=== PATIENT | male | born 1980 | race Caucasian/White ===

== ENCOUNTER → 2023-12-30 09:50 | Outpatient (BNVA) | payer OTHER, SELFPAY | PROVIDERS: Visit Provider Podiatrist Foot & Ankle Surgery | DX: I73.9 Peripheral vascular disease, unspecified; L97.512 Non-pressure chronic ulcer of other part of right foot with fat layer exposed | CPT/HCPCS: 73630 ==

== ENCOUNTER 2024-01-04 11:41 | Outpatient (CLI) | payer OTHER, SELFPAY ==
--- NOTE | 2024-01-04 12:30 | USCV_ITS ---
Eduardo Barlow Age: 43 Gender: M : 1980 Exam Date: 01/04/2024 11:55 Ordering Phys: Emanuel Pérez DPM Technologist: Exam Location: [facility] [place]_ Indication: pvd RIGHT LEFT Brachial 157.00 mmHg Brachial mmHg Pressure (mmHg) Waveform Pressure (mmHg) Waveform 93.00 SIGN HANGER 80.00 DPA 0.59 Ankle/Brachial Index 70.00 Post-Exercise Toe Pressure 0.45 Pre-Exercise Toe/Brachial Index FINDINGS Resting MARCO of 0.59 on the right side Resting TBI of 0.45 on the right CONCLUSIONS Abnormal resting MARCO, consistent with the moderate peripheral arterial disease Dr Marsha Ingram MD [facility] (Electronically Signed) Final Date: 05 January 2024 21:31 S
== END 2024-01-04 11:42 | disposition home or self-care (01) ==
LOC: RAD 11:42
PROVIDERS: Visit Provider Podiatrist Foot & Ankle Surgery
DX: I73.9 Peripheral vascular disease, unspecified (principal)
CPT/HCPCS: 93922

== ENCOUNTER 2024-01-11 09:45 | Outpatient (CLI) | payer OTHER, SELFPAY ==
--- NOTE | 2024-01-11 10:00 | CTR_ITS ---
PROCEDURE INFORMATION: Exam: CTA Abdominal Aorta and Bilateral Lower Extremities (Run-off) With Contrast Exam date and time: 01/11/2024 10:06 AM Age: 43 years old Clinical indication: Condition or disease; Peripheral vascular disease; Additional info: Pad, evaluate extent of pad TECHNIQUE: Imaging protocol: Computed tomographic angiography of the of the abdominal aorta, pelvis and bilateral lower extremities with contrast. 3D rendering (Not supervised by radiologist): MIP and/or 3D reconstructed images were created by the technologist. Radiation optimization: All CT scans at this facility use at least one of these dose optimization techniques: automated exposure control; mA and/or kV adjustment per patient size (includes targeted exams where dose is matched to clinical indication); or iterative reconstruction. Contrast material: OMNI 350; Contrast volume: 120 ml; Contrast route: INTRAVENOUS (IV); COMPARISON: CR XR foot RT min 3V* [id number] 12/30/2023 9:56 AM RADIATION DOSE METRICS: Total DLP (mGy-cm): 2004.43 FINDINGS: Aorta: There is mild aortic atherosclerotic disease. Celiac trunk and mesenteric arteries: There is 50-60% stenosis at the origin of the common hepatic artery. There is less than 50% stenosis at the origin of the splenic artery. There is less than 50% stenosis at the origin of the celiac artery. There is multifocal less than 50% stenosis in the distal superior mesenteric artery. There is no significant stenosis at the superior mesenteric artery origin or in the proximal portion. Renal arteries: Renal arteries are normal. Right iliac arteries: There is mild noncalcific plaque with less than 50% stenosis of the origin of the right common iliac artery. No plaque or stenosis in the right external iliac artery. Less than 50% stenosis in the right internal iliac artery. Right femoral/popliteal arteries: Minimal plaque and no stenosis in the right common femoral artery. Mild noncalcific plaque with less than 50% stenosis at the origin of right superficial femoral artery. The right profundus femoris artery is widely patent. There is mild noncalcific plaque with less than 50% stenosis in the right superficial femoral artery above Paulo's canal. The right superficial femoral artery is occluded through Paulo's canal over a 5.6 cm segment and is reconstituted distally by collaterals. There is mild calcific and noncalcific plaque in the reconstituted distal right superficial femoral artery with less than 50% stenosis. There is mild calcific and noncalcific plaque in the right popliteal artery with less than 50% stenosis. There is moderate calcific plaque with 50-60% stenosis of the distal right popliteal artery just above the takeoff of the anterior tibial artery. Right infrapopliteal arteries: The right anterior tibial artery demonstrates moderate multifocal calcific plaque and multifocal high-grade stenosis but is patent to the foot. The right posterior tibial artery demonstrates moderate multifocal calcific plaque and multifocal high-grade stenosis but is patent to the foot. The right peroneal artery demonstrates multifocal moderate calcific plaque and multifocal high-grade stenosis but is patent to the foot. The right dorsalis pedis artery is patent. Left iliac arteries: There is mild calcific and noncalcific plaque at the origin of the left common iliac artery with less than 50% stenosis. There is no plaque or stenosis in the left external iliac artery. Less than 50% stenosis in the left internal iliac artery. Left femoral/popliteal arteries: The left common femoral artery is normal. The left profundus femoris artery is widely patent. The left superficial femoral artery is normal proximally and demonstrates mild calcific and noncalcific plaque at Paulo's canal where there is a short segment of 50-60% stenosis at the distal aspect of Paulo's canal. Left popliteal artery demonstrates moderate calcific and noncalcific plaque with widely patent lumen proximally. The left distal popliteal artery is occluded over a 5 cm segment to the level of the takeoff of the anterior tibial artery. Left infrapopliteal arteries: There is reconstitution of the left anterior tibial artery near its origin. There is moderate multifocal calcific plaque and multifocal high-grade stenosis of the left anterior tibial artery which is patent to the foot. The left dorsalis pedis artery is faintly contrast opacified. There is reconstitution with faint contrast opacification of the proximal left peroneal artery. No contrast is seen in the left peroneal artery distally. There is reconstitution of the left mid posterior tibial artery which demonstrates moderate multifocal calcific plaque and multifocal high-grade stenosis but is patent to the foot. Lungs: Lung bases are clear. Liver: The liver is mildly enlarged. There is no focal liver abnormality. Gallbladder and bile ducts: The gallbladder is normal. There is no biliary dilation. Pancreas: The pancreas is unremarkable. Spleen: The spleen is mildly enlarged. Adrenal glands: The adrenal glands are unremarkable. Kidneys and ureters: The kidneys are unremarkable. No hydronephrosis or stones. No ureteral dilation. Stomach and bowel: The stomach is nondistended, limiting assessment of wall thickness. The small bowel is nondilated. The colon is unremarkable. Appendix: The appendix is not visible. Urinary bladder: There is mild diffuse bladder wall thickening suggesting muscular hypertrophy. Reproductive: There is nonspecific mild enlargement of the prostate gland. Intraperitoneal space: There is no free air or significant intraperitoneal free fluid. Lymph nodes: There is no lymphadenopathy in the retroperitoneum, mesentery, pelvis or inguinal regions. Bones/joints: There is cortical destruction of the right distal 1st phalangeal tuft with associated soft tissue edema and ulceration at the tip of the great toe. Bones in the lower extremities are otherwise unremarkable. There is moderate degenerative disease in the lumbar spine. The pelvis and hips are unremarkable. Soft tissues: The abdominal wall is intact. CT/CT angio abd aorta runof [id number] IMPRESSION: 1. 5.6 cm segment of probably chronic occlusion in the right distal superficial femoral artery at Paulo's canal with reconstitution above the popliteal artery via a well-developed collateral network. 2. 50-60% focal stenosis of the right distal popliteal artery. 3. Moderate right infrapopliteal arterial disease with patent 3 vessel runoff to the foot. 4. 5 cm segment of probably chronic occlusion in the left distal popliteal artery with incomplete reconstitution of the infrapopliteal vessels. 5. Severe left infrapopliteal artery disease with patent 2 vessel runoff to the foot via reconstitution by collaterals. 6. Osteomyelitis involving the distal 1st phalangeal tuft. 7. Incidental findings above.
[2024-01-11] MEDS: iohexol 350 mg/mL 500 mL Btl (per mL) IV (10:18)
== END 2024-01-11 09:46 | disposition home or self-care (01) ==
LOC: RAD 09:46
PROVIDERS: Visit Provider Podiatrist Foot & Ankle Surgery
DX: I70.203 Unspecified atherosclerosis of native arteries of extremities, bilateral legs (principal); M86.9 Osteomyelitis, unspecified
CPT/HCPCS: 75635; Q9967

== ENCOUNTER → 2024-03-12 10:19 | Outpatient (BNVA) | payer OTHER, SELFPAY | PROVIDERS: Visit Provider Podiatrist Foot & Ankle Surgery | DX: I73.9 Peripheral vascular disease, unspecified; L97.514 Non-pressure chronic ulcer of other part of right foot with necrosis of bone | CPT/HCPCS: 73630 ==

== ENCOUNTER 2024-03-21 09:35 | Day surgery (SDC) | payer OTHER, SELFPAY ==
[2024-03-21] VITALS (7 sets, daily range): BP systolic 108–147; BP diastolic 63–87; PULSE 64–78; RESP 13–18; TEMP 36.3–36.4; O2SAT 96–98; BMI 31.5
[2024-03-21 10:20] LABS: Glucose Point of Care 87 mg/dL (70-110)
--- NOTE | 2024-03-21 10:31 | W.PM.OPSUD ---
Surgery/Procedure H&P Update DATE OF PROCEDURE: March 21, 2024 DATE H&P PERFORMED: 03/12/24 H&P UPDATE INFORMATION: I have reviewed H&P completed within last 30 days, I have examined patient prior to procedure, No changes to prior documentation and H&[place] is in [facility] [place] indicated PREOP DIAGNOSIS: Osteomyelitis PLANNED PROCEDURE: Operation Date: 03/21/24 10:40 Proposed Procedures p Amputation Toe/s Hallux Amputation/Partial right hallux amputation(Right) - Emanuel Pérez DPM
--- NOTE | 2024-03-21 10:33 | ANES.PREANE2 ---
Pre-Anesthetic Assessment Height/Weight: Height 2.01 m Weight 127.006 kg Temp Pulse Resp BP Pulse Ox O2 Del Method 97.5 F L 78 18 147/87 98 Room Air 03/21/24 09:51 03/21/24 09:51 03/21/24 09:51 03/21/24 09:51 03/21/24 09:51 03/21/24 10:02 Preop Diagnosis: Osteomyelitis Operation Date: 03/21/24 10:40 Proposed Procedures p Amputation Toe/s Hallux Amputation/Partial right hallux amputation(Right) - Emanuel Pérez DPM Familial anesthetic complications: pulls at lines and tubes upon awakening during one surgery several years ago Was Beta Allegra taken within 24 hours: N/A Was Clonidine taken within 24 hours: N/A Last intake: Intake Last Liquid Date 03/20/24 Last Liquid Time 22:00 Last Solid Date 03/20/24 Last Solid Time 22:00 Social Tobacco and No alcohol Exam alert, oriented x 3, clear to auscultation bilaterally and regular rate & rhythm Airway Dentition: full CV/HEM Peripheral Vascular Disease Metabolic Diabetes Mellitus and Hyperlipidemia Anesthetic Plan ASA status: 3 Anesthesia: MAC Risk of > 500 ml blood loss (7ml/kg in children): No Medications/Allergies Home Medications Medication Instructions Recorded Confirmed Last Taken Type aspirin 81 mg tablet,delayed 324 mg PO DAILY 02/13/24 03/20/24 03/20/24 History release (Adult Aspirin Regimen) doxycycline hyclate 100 mg capsule 100 mg PO BID #20 caps 03/12/24 03/20/24 03/20/24 Rx atorvastatin 80 mg tablet 80 mg PO DAILY 03/20/24 03/20/24 03/20/24 History clopidogrel 75 mg tablet 75 mg PO DAILY 03/20/24 03/20/24 03/20/24 History insulin glargine-yfgn 100 unit/mL 47 unit SUBCUT DAILY 03/20/24 03/20/24 03/20/24 History (3 mL) subcutaneous pen insulin lispro 100 unit/mL 0 sliding scale dose SUBCUT BIDPC 03/20/24 03/20/24 03/20/24 History subcutaneous pen hydrocodone 5 mg-acetaminophen 325 1 tab PO Q6H PRN pain #12 tabs 03/21/24 Unknown Rx mg tablet Allergies Allergy/AdvReac Type Severity Reaction Status Date / Time No Known Allergies Allergy Verified 03/12/24 10:08 [facility] Anesthesia Medical History Smoking Family History Mother CAD (coronary artery disease) Father CAD (coronary artery disease) Stroke Social History Smoking and tobacco/nicotine status: current every day tobacco/nicotine user cigarettes Packs smoked per day: 2 Years cigarettes smoked: 25 Alcohol intake: former Year of sobriety/quit date alcohol: 2013 Substance/Drug Use: never Marital status: Single Data Anesthesia Cardiac Studies: No Data to Display
[2024-03-21] MEDS: sodium chloride 0.9% 1,000 ML 30 ML IV (10:34)
[2024-03-21] MEDS: acetaminophen 1,000 MG/100 ML PIGGYBACK 400 MG IV (10:35)
[2024-03-21] MEDS: gabapentin 300 mg Capsule PO (10:35)
[2024-03-21] MEDS: ceFAZolin 3,000 MG in sodium chloride 0.9% (plus) 100 ML 200 MG IV (11:01)
[2024-03-21] MEDS: BUPivacaine 0.5% INJ 30 mL INJECTION (11:24)
--- NOTE | 2024-03-21 11:40 | W.PM.BPON ---
Date of procedure: 03/21/2024 Surgeon name: Dr. Emanuel Pérez D.P.M. Construction Technician(s) name(s): Reyes Procedure(s) performed: Partial hallux amputation right foot Description of findings: Osteomyelitis distal phalanx right hallux Estimated blood loss: 1 cc Tourniquet time: No tourniquet used Specimen(s) removed: Distal phalanx right hallux send in formalin, cultures aerobic and anaerobic Post-operative diagnosis: Osteomyelitis right distal phalanx of hallux
[2024-03-21] MEDS: HYDROcodone-acetaminophen 5-325 mg Tablet 1 TAB PO (12:27)
--- NOTE | 2024-03-21 12:35 | ANE.PACU2 ---
Inpatient post-anesthesia follow up: Airway intact: Yes Vital signs: Temperature 97.4 F Pulse Rate 64 Respiratory Rate 16 Blood Pressure 114/72 Pulse Oximetry 97 Oxygen Delivery Me thod Room Air Oxygen Flow Rate Fraction of Inspir ed Oxygen Hydration adequate: Yes Nausea and vomiting: No Pain level: 1 Mental status: Baseline
--- NOTE | 2024-03-21 21:41 | P.OP_ITS ---
Operative Report Date of procedure: March 21, 2024 Pre-op diagnosis: Osteomyelitis right hallux Post-op diagnosis: Same Post-op findings: Osteomyelitis distal phalanx right hallux Procedure done: Partial hallux amputation right foot CPT 50043 Implants: None Specimens removed/disposition: Cultures aerobic and anaerobic Pathology: Distal phalanx right hallux sent to pathology as surgical specimen Surgeon: Emanuel Pérez DPM [employer]: Reyes Estimated blood loss: 1 cc No tourniquet used Complications: None Findings: See above Procedure: Patient is a 44-year-old male that has a history of chronic ulceration right distal hallux with underlying osteomyelitis. The patient has had the aforementioned chief complaint for some time. Conservative treatment measures have been attempted and the patient has opted for surgical intervention at this time. A lengthy discussion regarding the procedure, including risks and complications has been had with the patient and is noted in the recent clinic note. Written and verbal consent have been obtained. All patient questions have been answered to the patient?s satisfaction. No written or verbal guarantees have been given or implied. The patient has been NPO since midnight. The history has been reviewed and the history and physical is current. The signed consent was confirmed and placed in the patient chart. Patient imaging has been reviewed and is consistent with the diagnosis. Under mild sedation, the patient was brought into the operating room and placed on the table in the supine position. IV antibiotics were given by the anesthesia team as preoperative surgical prophylaxis. IV sedation was then performed by the anesthesiateam. A local field block was performed using 0.5% Marcaine plain. No tourniquet was used for the procedure due to recent revascularization. Betadine prep was performed. Foot was then draped in the usual fashion and the following procedure was then performed. Attention was directed to the distal right hallux where a full-thickness ulceration with positive probe to bone was visualized. A fishmouth incision was made circumferentially around the distal aspect of the hallux using a #15 blade. Dissection was carried out to the level of the hallux interphalangeal joint. This was resected and passed from the operative field be sent to pathology as surgical specimen. The remaining tissue appeared healthy and viable in nature. The head of the proximal phalanx was freed from erosive or degenerative changes. No abscess formation was visualized. Blood flow was stable to the area. Site was irrigated with copious amounts of sterile saline before attention was directed to closure. 3-0 nylon was used to close the incision in simple erupted fashion. The site was then dressed with Xeroform, 4 x 4 gauze, Kerlix and Coban. The patient tolerated the procedure and anesthesia well and without complication. The patient was transported from the operating room to the recovery room with vital signs stable and vascular status intact to all digits of the right foot. The patient was given both written and verbal instructions to remain minimally weightbearing in postoperative shoe to the operative extremity, to keep dressings/splint clean, dry and intact and to take pain medication as directed. The patient will follow-up in the outpatient setting at their scheduled appointment. The patient was discharged with my personal number and was instructed to call if any questions or issues should arise. They were discharged home once anesthesia criteria was met.
== END 2024-03-21 12:37 | disposition home or self-care (01) ==
PROVIDERS: Visit Provider Podiatrist Foot & Ankle Surgery
PROC: (CPT 28825; principal; 2024-03-21 10:30)
DX: M86.8X7 Other osteomyelitis, ankle and foot (principal); E11.9 Type 2 diabetes mellitus without complications; E78.5 Hyperlipidemia, unspecified; Z79.82 Long term (current) use of aspirin; Z79.4 Long term (current) use of insulin; F17.210 Nicotine dependence, cigarettes, uncomplicated
CPT/HCPCS: 28825; 36416; 82962; 87070; 87075; 87077; 87205; 88305; 88311; J0131; J0690; J2704; J3010; J3490; J7030

== ENCOUNTER → 2024-12-24 16:15 | Outpatient (BNVA) | payer OTHER, SELFPAY | PROVIDERS: Visit Provider Podiatrist Foot & Ankle Surgery | DX: M79.671 Pain in right foot (principal); S91.109A Unspecified open wound of unspecified toe(s) without damage to nail, initial encounter; I73.9 Peripheral vascular disease, unspecified; L97.514 Non-pressure chronic ulcer of other part of right foot with necrosis of bone; M86.671 Other chronic osteomyelitis, right ankle and foot; L08.9 Local infection of the skin and subcutaneous tissue, unspecified; X58.XXXA Exposure to other specified factors, initial encounter | CPT/HCPCS: 36415; 73630; 85007; 85027; 85651; 86140; 87070; 87075; 87205 ==

== ENCOUNTER 2024-12-31 08:53 | Outpatient (CLI) | payer OTHER, SELFPAY ==
--- NOTE | 2024-12-31 09:30 | MR_ITS ---
WS: [id number] MRI RIGHT FOOT WITH AND WITHOUT CONTRAST. COMPARISON: Radiograph 12/24/2024 Multiplanar, multisequence imaging is performed with and without contrast. MultiHance 20 mL. Status post amputation distal phalanx of the first toe. No significant amount of soft tissue inflammation. No enhancement is identified at the amputation site. There is some very mild soft tissue thickening which does not enhance at the amputation site. No osseous enhancement. There is a very tiny 6 mm cyst along the lateral distal aspects of the proximal phalanx. May be a postoperative fluid collection. This does not enhance. No additional abnormalities are identified within the foot. MR/MR foot RT wo/w con [id number] IMPRESSION: 1. Status post amputation distal phalanx of the first toe. 2. No obvious enhancement at the amputation site. Small 6 mm nonenhancing dipti ection along the lateral distal proximal phalanx of the first toe. May be a sma ll post operative seroma.
[2024-12-31] MEDS: gadobenate dimeglumine 20 mL vial IV (10:21)
== END 2024-12-31 08:54 | disposition home or self-care (01) ==
PROVIDERS: Visit Provider Podiatrist Foot & Ankle Surgery
DX: M86.9 Osteomyelitis, unspecified (principal); Z98.890 Other specified postprocedural states; R93.6 Abnormal findings on diagnostic imaging of limbs
CPT/HCPCS: 73720

== ENCOUNTER 2024-12-31 16:16 | Outpatient (CLI) | payer OTHER, SELFPAY | END 2024-12-31 16:17 | disposition home or self-care (01) | LOC: SPT 16:16 | PROVIDERS: Visit Provider Podiatrist Foot & Ankle Surgery | DX: Z46.89 Encounter for fitting and adjustment of other specified devices (principal); L97.504 Non-pressure chronic ulcer of other part of unspecified foot with necrosis of bone | CPT/HCPCS: L4361 ==

== ENCOUNTER → 2025-02-18 15:21 | Outpatient (BNVA) | payer OTHER, SELFPAY | PROVIDERS: Visit Provider Podiatrist Foot & Ankle Surgery | DX: L02.611 Cutaneous abscess of right foot (principal); L97.514 Non-pressure chronic ulcer of other part of right foot with necrosis of bone; L08.9 Local infection of the skin and subcutaneous tissue, unspecified; I73.9 Peripheral vascular disease, unspecified; L03.115 Cellulitis of right lower limb | CPT/HCPCS: 73630; 87070; 87075; 87205 ==

== ENCOUNTER 2025-02-25 07:20 | Day surgery (SDC) | payer OTHER, SELFPAY ==
[2025-02-25] VITALS (10 sets, daily range): BP systolic 90–121; BP diastolic 50–85; PULSE 60–69; RESP 16–18; TEMP 36.2–36.4; O2SAT 95–99; BMI 33.7
[2025-02-25] MEDS: sodium chloride 0.9% 1,000 ML 30 ML IV (07:30)
[2025-02-25 07:50] LABS: Glucose Point of Care 215 mg/dL (70-110)
[2025-02-25] MEDS: gabapentin 300 mg Capsule PO (07:53)
[2025-02-25] MEDS: CELEcoxib 200 mg Capsule 400 MG PO (07:53)
--- NOTE | 2025-02-25 07:55 | ANES.PREANE2 ---
Pre-Anesthetic Assessment Height/Weight: Height 6 ft 7 in Weight 300 lb Temp Pulse Resp BP Pulse Ox O2 Del Method 97.5 F L 69 16 121/85 99 Room Air 02/25/25 07:38 02/25/25 07:38 02/25/25 07:38 02/25/25 07:38 02/25/25 07:38 02/25/25 07:38 Preop Diagnosis: Osteomyelitis Operation Date: 02/25/25 09:25 Proposed Procedures p RIGHT Hallux Amputation(Right) - Emanuel Pérez DPM Was Beta Allegra taken within 24 hours: N/A Was Clonidine taken within 24 hours: N/A Last intake: Intake Last Liquid Date 02/25/25 Last Liquid Time 00:00 Last Solid Date 02/24/25 Last Solid Time 18:00 Social Tobacco and No alcohol Exam alert, oriented x 3, clear to auscultation bilaterally and regular rate & rhythm Airway Submandibular: within normal limits Cervical ROM: within normal limits Mallampati: Class III Dentition: full Comments: Comments: Large joel Anesthetic Plan ASA status: 3 Anesthesia: MAC Other: No prior issues with anesthesia NPO since yesterday evening History of PAD, on chronic Plavix Insulin-dependent DM, BS 215 today Current smoker On chronic Plavix for lower extremity stent Plan for MAC anesthesia with local via surgeon Medications/Allergies Home Medications ?Medication ?Instructions ?Recorded ?Confirmed ?Last Taken ?Type atorvastatin 80 mg tablet 80 mg PO DAILY 03/20/24 02/25/25 02/24/25 History clopidogrel 75 mg tablet 75 mg PO DAILY 03/20/24 02/25/25 03/20/24 History insulin glargine-yfgn 100 unit/mL 47 unit SUBCUT DAILY 03/20/24 02/25/25 02/24/25 History (3 mL) subcutaneous pen insulin lispro 100 unit/mL 0 sliding scale dose SUBCUT BIDPC 03/20/24 02/25/25 02/24/25 History subcutaneous pen CAM boot #1 ea 12/31/24 02/25/25 Unknown Rx ciprofloxacin HCl 750 mg tablet 500 mg (0.6667 x 750 mg) PO Q12H 02/18/25 02/25/25 02/25/25 Rx #14 tabs clindamycin HCl 300 mg capsule 300 mg PO TID #21 caps 02/18/25 02/25/25 02/25/25 Rx Allergies Allergy/AdvReac Type Severity Reaction Status Date / Time No Known Allergies Allergy Verified 01/31/25 15:02 [facility] Anesthesia Medical History Smoking Family History Mother CAD (coronary artery disease) Father CAD (coronary artery disease) Stroke Social History Smoking and tobacco/nicotine status: current every day tobacco/nicotine user cigarettes Packs smoked per day: 2 Years cigarettes smoked: 25 Alcohol intake: former Year of sobriety/quit date alcohol: 2013 Substance/Drug Use: never Marital status: Single
--- NOTE | 2025-02-25 08:50 | W.PM.OPSUD ---
Surgery/Procedure H&P Update DATE OF PROCEDURE: February 25, 2025 DATE H&P PERFORMED: 02/18/25 H&P UPDATE INFORMATION: I have reviewed H&P completed within last 30 days, I have examined patient prior to procedure, No changes to prior documentation, H&P is in [facility] EMR on date indicated and Risks and benefits of the procedure reviewed PREOP DIAGNOSIS: Osteomyelitis PLANNED PROCEDURE: Operation Date: 02/25/25 09:25 Proposed Procedures p RIGHT Hallux Amputation(Right) - Emanuel Pérez DPM
[2025-02-25] MEDS: ceFAZolin 3,000 MG in sodium chloride 0.9% (plus) 100 ML 200 MG IV (09:05)
[2025-02-25] MEDS: BUPivacaine 0.5% INJ 30 mL INJECTION (09:22)
--- NOTE | 2025-02-25 09:49 | P.BOP_ITS ---
Date of procedure: 02/25/2025 Surgeon name: Dr. Emanuel Pérez D.P.M. Rental Management Trainee(s) name(s): Jerome Procedure(s) performed: Right hallux amputation Description of findings: Osteomyelitis right proximal phalanx of hallux Estimated blood loss: 2 cc Tourniquet time: 16 minutes Specimen(s) removed: Right hallux, cultures aerobic and anaerobic Post-operative diagnosis: Osteomyelitis
--- NOTE | 2025-02-25 09:50 | P.OP_ITS ---
Operative Report Date of procedure: February 25, 2025 Surgeon: Emanuel Pérez DPM Procedure: Date of procedure: 02/25/25 Pre-op diagnosis: Osteomyelitis Right hallux proximal phalanx Post-op diagnosis: same Post-op findings: Osteomyelitis right hallux proximal phalanx Procedure done: Right hallux amputation CPT 99888 Implants: none Specimens removed: right hallux Surgeon: Dr. Emanuel Pérez DPM [employer] Faculty Member: Jerome Estimated blood loss: 2cc Tourniquet time: 16 minutes Complications: none Patient is a 45-year-old male that has a history of right hallux osteomyelitis (proximal phalanx). The patient has had the aforementioned chief complaint for some time. Conservative treatment measures have been attempted and the patient has opted for surgical intervention at this time. A lengthy discussion regarding the procedure, including risks and complications has been had with the patient and is noted in the recent clinic note. Written and verbal consent have been obtained. All patient questions have been answered to the patient?s satisfa ction. No written or verbal guarantees have been given or implied. The patient has been NPO since midnight. The history has been reviewed and the history and physical is current. The signed consent was confirmed and placed in the patient chart. Patient imaging has been reviewed and is consistent with the diagnosis. Under mild sedation, the patient was brought into the operating room and placed on the table in the supine position. IV antibiotics were given by the anesthesia team as preoperative surgical prophylaxis. MAC sedation was then performed by the anesthesiateam. A local field block was performed using 0.5% Marcaine plain. A pneumatic tourniquet was then placed about the right ankle. The operative extremity was then prepped and draped in the usual fashion. The extremity was then elevated and exsanguinated before the tourniquet was inflated to 250 mmHg. After inflation, the following procedure was then performed. Attention was directed to the right hallux where a fishmouth incision was made circumferentially about the hallux with care to preserve as much soft tissue as possible. Dissection was carried full-thickness down to level of bone. Dissection was carried out to the level of the first metatarsophalangeal joint. The collateral ligaments and attachments of the first metatarsal phalangeal joint capsule were excised. A penetrating towel clamp was then used to grasp the end of the hallux to joystick the hallux for amputation. All connections of the first metatarsophalangeal joint were released using a #15 blade. The hallux was then passed from the operative field be sent as specimen. The remaining tissues appeared healthy and viable in nature. The metatarsal head appeared healthy without any degenerative changes. The flexor and extensor tendons were then grasped and pulled distally before being incised as proximally as possible using a #15 blade. All remaining tissue appeared healthy. The site was then irrigated with copious amounts of sterile saline via cystoscopy tubing. The amputation site was then closed using 3-0 nylon in simple interrupted, horizontal mattress and retention type fashion. The tourniquet was let down and good hyperemic response was noted to all remaining digits of the operative extremity. The incision site was then dressed with Xeroform, 4 x 4 gauze, Kerlix, Coban. The patient tolerated the procedure and anesthesia well and without complication. The patient was transported from the operating room to the recovery room with vital signs stable and vascular status intact to all digits of the right foot. The patient was given both written and verbal instructions to remain minimally weightbearing in cam boot to the operative extremity, to keep dressings/splint clean, dry and intact and to take pain medication as directed. The patient will follow-up in the outpatient setting at their scheduled appointment. The patient was discharged with my personal number and was instructed to call if any questions or issues should arise. They were discharged home once anesthesia criteria was met.
--- NOTE | 2025-02-25 10:52 | ANE.PACU2 ---
Inpatient post-anesthesia follow up: Airway intact: Yes Vital signs: Temperature 97.3 F Pulse Rate 62 Respiratory Rate 16 Blood Pressure 106/63 Pulse Oximetry 96 Oxygen Delivery Me thod Room Air Oxygen Flow Rate Fraction of Inspir ed Oxygen Hydration adequate: Yes Nausea and vomiting: No Pain level: 1 Mental status: Baseline
== END 2025-02-25 10:52 | disposition home or self-care (01) ==
PROVIDERS: Visit Provider Podiatrist Foot & Ankle Surgery
PROC: (CPT 28820; principal; 2025-02-25 09:15)
DX: E11.69 Type 2 diabetes mellitus with other specified complication (principal); M86.171 Other acute osteomyelitis, right ankle and foot; E11.52 Type 2 diabetes mellitus with diabetic peripheral angiopathy with gangrene; E11.621 Type 2 diabetes mellitus with foot ulcer; L97.514 Non-pressure chronic ulcer of other part of right foot with necrosis of bone; F17.210 Nicotine dependence, cigarettes, uncomplicated; Z79.02 Long term (current) use of antithrombotics/antiplatelets; Z79.899 Other long term (current) drug therapy; Z79.4 Long term (current) use of insulin
CPT/HCPCS: 28820; 36416; 82962; 87070; 87075; 87077; 87205; 88305; 88311; J0690; J2250; J2704; J3010; J3490; J7030; J9999

== ENCOUNTER → 2025-03-25 14:14 | Outpatient (BNVA) | payer OTHER, SELFPAY | PROVIDERS: Visit Provider Podiatrist Foot & Ankle Surgery | DX: M79.672 Pain in left foot (principal); L08.9 Local infection of the skin and subcutaneous tissue, unspecified; I73.9 Peripheral vascular disease, unspecified; Z89.411 Acquired absence of right great toe | CPT/HCPCS: 73630 ==

== ENCOUNTER 2025-08-12 11:09 | Day surgery (SDC) | payer OTHER, SELFPAY ==
--- NOTE | 2025-08-08 10:52 | SUR.PREOP ---
at time of phone pre op patient said he is taking plavix for a stent in his right leg and he has been taking it for about a week and a half and could not remember if he told dr godinez about it or not. I contacted Samra in the clinic and she checked with Dr. Godinez, he said patient can stay on plavix and still set for surgery on Sunday 08/12.Patient was called back and notified.
[2025-08-12] VITALS (9 sets, daily range): BP systolic 103–162; BP diastolic 48–92; PULSE 68–83; RESP 16–20; TEMP -17.5–37.1; O2SAT 95–98; BMI 33.4
--- NOTE | 2025-08-12 09:47 | ANES.PREANE2 ---
Pre-Anesthetic Assessment Height/Weight: Height 6 ft 7 in Weight 297 lb Preop Diagnosis: necrosis of toe bone Operation Date: 08/12/25 10:10 Proposed Procedures p Amputation Toe/s Hallux Amputation(Left) - Emanuel Pérez DPM Was Beta Allegra taken within 24 hours: N/A Was Clonidine taken within 24 hours: N/A Social Tobacco and No alcohol Exam alert, oriented x 3, clear to auscultation bilaterally and regular rate & rhythm Airway Submandibular: within normal limits Cervical ROM: within normal limits Mallampati: Class III Dentition: full Anesthetic Plan ASA status: 3 Anesthesia: MAC Other: No prior issues with anesthesia NPO since yesterday evening History of PAD, on chronic Plavix Insulin-dependent DM, will check preop BS Current smoker On chronic Plavix for lower extremity stent Plan for MAC anesthesia with local via surgeon Medications/Allergies Home Medications ?Medication ?Instructions ?Recorded ?Confirmed ?Last Taken ?Type atorvastatin 80 mg tablet 80 mg PO DAILY 03/20/24 08/08/25 08/11/25 History clopidogrel 75 mg tablet 75 mg PO DAILY 03/20/24 08/08/25 08/11/25 History insulin lispro 100 unit/mL 0 sliding scale dose SUBCUT BIDPC 03/20/24 08/08/25 08/11/25 History subcutaneous pen CAM boot #1 ea 12/31/24 08/01/25 Unknown Rx aspirin 81 mg tablet,delayed 81 mg PO DAILY 08/08/25 08/08/25 08/11/25 History release insulin human U-100 NPH-regulr 42 unit SUBCUT BID 08/08/25 08/08/25 08/11/25 History 70-30 mix 100 unit/mL subcutaneous susp (Novolin 70/30 U-100 Insulin) Allergies Allergy/AdvReac Type Severity Reaction Status Date / Time No Known Allergies Allergy Verified 08/01/25 07:06 [facility] Anesthesia Medical History Smoking Family History Mother CAD (coronary artery disease) Father CAD (coronary artery disease) Stroke Social History Smoking and tobacco/nicotine status: current every day tobacco/nicotine user cigarettes Packs smoked per day: 2 Years cigarettes smoked: 25 Alcohol intake: former Year of sobriety/quit date alcohol: 2013 Substance/Drug Use: never Marital status: Single
--- NOTE | 2025-08-12 11:29 | W.PM.OPSUD ---
Surgery/Procedure H&P Update DATE OF PROCEDURE: August 12, 2025 DATE H&P PERFORMED: 08/01/25 H&P UPDATE INFORMATION: I have reviewed H&P completed within last 30 days, I have examined patient prior to procedure, No changes to prior documentation, H&P is in [facility] EMR on date indicated and Risks and benefits of the procedure reviewed PREOP DIAGNOSIS: Osteomyelitis PLANNED PROCEDURE: Operation Date: 08/12/25 10:10 Proposed Procedures p Amputation Toe/s Hallux Amputation(Left) - Emanuel Pérez DPM
[2025-08-12] MEDS: ceFAZolin 3,000 MG in sodium chloride 0.9% (100 ml) 100 ML 200 MG IV (11:50)
[2025-08-12] MEDS: BUPivacaine 0.5% INJ 30 mL INJECTION (11:50)
--- NOTE | 2025-08-12 12:25 | P.OP_ITS ---
Operative Report Date of procedure: August 12, 2025 Surgeon: Emanuel Pérez DPM Procedure: Date of procedure: 08/12/2025 Pre-op diagnosis: Osteomyelitis left hallux Post-op diagnosis: Same Post-op findings: Full-thickness ulceration extending down to the level of bone Procedure done: Left hallux amputation CPT 29837 Implants: None Specimens removed: Left hallux, cultures aerobic and anaerobic Surgeon: Dr. Emanuel Pérez DPM [employer] Targeting Technician: See interoperative documentation Estimated blood loss: 5 cc Tourniquet time: 21-minute Complications: None Patient is a 45-year-old male that has a history of chronic ulceration plantar left hallux with extension down to bone. The patient has had the aforementioned chief complaint for some time. Conservative treatment measures have been attempted and the patient has opted for surgical intervention at this time. A lengthy discussion regarding the procedure, including risks and complications has been had with the patient and is noted in the recent clinic note. Written and verbal consent have been obtained. All patient questions have been answered to the patient?s satisfaction. No written or verbal guarantees have been given or implied. The patient has been NPO since midnight. The history has been reviewed and the history and physical is current. The signed consent was confirmed and placed in the patient chart. Patient imaging has been reviewed and is consistent with the diagnosis. Under mild sedation, the patient was brought into the operating room and placed on the table in the supine position. IV antibiotics were given by the anesthesia team as preoperative surgical prophylaxis. MAC sedation was then performed by the anesthesiateam. A pneumatic tourniquet was then placed about the left ankle. The operative extremity was then prepped and draped in the usual fashion. The extremity was then elevated and exsanguinated before the tourniquet was inflated to 250 mmHg. After inflation, the following procedure was then performed. Attention was directed to the left hallux where a fishmouth incision was made circumferentially about the hallux with care to preserve as much soft tissue as possible. Dissection was carried full-thickness down to level of bone. Dissect ion was carried out to the level of the first metatarsophalangeal joint. The collateral ligaments and attachments of the first metatarsal phalangeal joint capsule were excised. A penetrating towel clamp was then used to grasp the end of the hallux to joystick the hallux for amputation. All connections of the first metatarsophalangeal joint were released using a #15 blade. The hallux was then passed from the operative field be sent as specimen. The remaining tissues appeared healthy and viable in nature. The metatarsal head appeared healthy without any degenerative changes. The flexor and extensor tendons were then grasped and pulled distally before being incised as proximally as possible using a #15 blade. All remaining tissue appeared healthy. The site was then irrigated with copious amounts of sterile saline via cystoscopy tubing. The amputation site was then closed using 3-0 Prolene in simple interrupted, horizontal mattress and retention type fashion. The tourniquet was let down and good hyperemic response was noted to all remaining digits of the operative extremity. The incision site was then dressed with Xeroform, 4 x 4 gauze, Kerlix, Coban. The patient tolerated the procedure and anesthesia well and without complication. The patient was transported from the operating room to the recovery room with vital signs stable and vascular status intact to all digits o f the left foot. The patient was given both written and verbal instructions to remain weightbearing as tolerated in postop shoe to the operative extremity, to keep dressings/splint clean, dry and intact and to take pain medication as directed. The patient will follow-up in the outpatient setting at their scheduled appointment. The patient was discharged with my personal number and was instructed to call if any questions or issues should arise. They were discharged home once anesthesia criteria was met.
[2025-08-12] MEDS: HYDROcodone-acetaminophen 5-325 mg Tablet 1 TAB PO (13:27)
--- NOTE | 2025-08-12 13:45 | ANE.PACU2 ---
Inpatient post-anesthesia follow up: Airway intact: Yes Vital signs: Temperature 98.4 F Pulse Rate 68 Respiratory Rate 16 Blood Pressure 112/63 Pulse Oximetry 98 Oxygen Delivery Me thod Room Air Oxygen Flow Rate Fraction of Inspir ed Oxygen Hydration adequate: Yes Nausea and vomiting: No Pain level: 1 Mental status: Baseline
== END 2025-08-12 13:45 | disposition home or self-care (01) ==
PROVIDERS: PCP Podiatrist Foot & Ankle Surgery; Visit Provider Podiatrist Foot & Ankle Surgery
PROC: (CPT 28820; principal; 2025-08-12 10:00)
DX: M86.072 Acute hematogenous osteomyelitis, left ankle and foot (principal); Z79.02 Long term (current) use of antithrombotics/antiplatelets; E11.9 Type 2 diabetes mellitus without complications; Z79.82 Long term (current) use of aspirin; Z79.4 Long term (current) use of insulin; F17.210 Nicotine dependence, cigarettes, uncomplicated
CPT/HCPCS: 28820; 36416; 82962; 87070; 87075; 87077; 87186; 87205; 88305; 88311; J0690; J2250; J2704; J3010; J3490; J7030; J9999

== ENCOUNTER 2025-10-07 15:43 | Inpatient (IN) | payer OTHER, SELFPAY ==
[2025-10-07] VITALS (7 sets, daily range): BP systolic 113–199; BP diastolic 62–89; PULSE 70–87; RESP 16–18; TEMP 36.7; O2SAT 96–100; BMI 36.0
--- NOTE | 2025-10-07 16:00 | W.ED.EXTPRO ---
HPI - Extremity Problem General: Chief complaint: Extremity Injury, Lower Stated complaint: Nguyen Gaona foot wound, pain, Time Seen by Provider: 10/07/25 15:46 History of Present Illness: 45-year-old man with a history of diabetes and recurrent toe infections with osteomyelitis, peripheral arterial disease and hypertension who presents emergency room from podiatry clinic with plan for admission and IV antibiotics. He has failed outpatient therapy with oral antibiotics. He has had both great toes amputated. He has now had an infection in his second toe of his left foot for a few months now. No systemic fevers. No altered mental status. No focal motor deficits. No chest pain. Related Data Home Medications ?Medication ?Instructions ?Recorded ?Confirmed atorvastatin 80 mg tablet 80 mg PO DAILY 03/20/24 10/07/25 clopidogrel 75 mg tablet 75 mg PO DAILY 03/20/24 10/07/25 insulin lispro 100 unit/mL 0 sliding scale dose SUBCUT BIDPC 03/20/24 10/07/25 subcutaneous pen aspirin 81 mg tablet,delayed 81 mg PO DAILY 08/08/25 10/07/25 release insulin human U-100 NPH-regulr 42 unit SUBCUT BID 08/08/25 10/07/25 70-30 mix 100 unit/mL subcutaneous susp (Novolin 70/30 U-100 Insulin) Previous Rx's ?Medication ?Instructions ?Recorded CAM boot #1 ea 12/31/24 hydrocodone 5 mg-acetaminophen 325 1 tab PO Q6H PRN pain #20 tabs 08/12/25 mg tablet ciprofloxacin HCl 500 mg tablet 500 mg PO BID 10 days #20 tabs 08/19/25 clindamycin HCl 300 mg capsule 300 mg PO TID 10 days #30 caps 08/19/25 (Cleocin HCl) levofloxacin 500 mg tablet 500 mg PO DAILY #10 tabs 09/23/25 Allergies Allergy/AdvReac Type Severity Reaction Status Date / Time No Known Allergies Allergy Verified 09/30/25 12:38 Review of Systems Narrative: Constitutional symptoms: Negative except as documented in HPI. Skin symptoms: Negative except as documented in HPI. Eye symptoms: Negative except as documented in HPI. ENMT symptoms: Negative except as documented in HPI. Respiratory symptoms: Negative except as documented in HPI. Cardiovascular symptoms: Negative except as documented in HPI. Gastrointestinal symptoms: Negative except as documented in HPI. Genitourinary symptoms: Negative except as documented in HPI. Musculoskeletal symptoms: Negative except as documented in HPI. Neurologic symptoms: Negative except as documented in HPI. Psychiatric symptoms: Negative except as documented in HPI. Endocrine symptoms: Negative except as documented in HPI. [facility] ED PFSH: Medical History Smoking Family History Mother CAD (coronary artery disease) Father CAD (coronary artery disease) Stroke Social History Smoking and tobacco/nicotine status: current every day tobacco/nicotine user cigarettes Packs smoked per day: 2 Years cigarettes smoked: 25 Alcohol intake: former Year of sobriety/quit date alcohol: 2013 Substance/Drug Use: never Marital status: Single Physical Exam Narrative: EXAM NARRATIVE: General: Alert, no acute distress. Skin: Warm, dry. Head: Normocephalic, atraumatic. Neck: Supple, trachea midline. Eye: Extraocular movements are intact. Ears, nose, mouth and throat: mucosa moist. Cardiovascular: Regular, Normal peripheral perfusion. Respiratory: Lungs are clear to auscultation, respirations are non-labored, breath sounds are equal, Symmetrical chest wall expansion. Gastrointestinal: Soft, Nontender, Non distended Musculoskeletal: Bilateral great toe amputations. Left second toe shows signs of infection still. Neurological: Alert and oriented, No focal neurological deficit observed. Psychiatric: Cooperative, appropriate mood & affect. Course Vital Signs: Vital signs: Vital Signs Temperature 98.0 F 10/07/25 15:47 Pulse Rate 87 10/07/25 15:47 Respiratory Rate 18 10/07/25 15:47 Blood Pressure 199/80 10/07/25 15:47 Pulse Oximetry 100 10/07/25 15:47 Oxygen Delivery Me thod Room Air 10/07/25 15:47 MDM - Extremity (Nontraumatic) Medical Decision Making Medical decision making Patient's reason for coming to the emergency room: Social determinants: I reviewed the patient's medical record. 45-year-old man with a history of diabetes and recurrent toe infections with osteomyelitis, peripheral arterial disease and hypertension. Continued tobacco abuse. I reviewed Dr. Pérez's note today. Delayed wound healing. Plan for IV antibiotics. I reviewed the patient's current home meds Patient is on Plavix. Insulin-dependent. Alternate historians: None Differential diagnosis: including but not limited to and based on the above HPI, review of systems and physical exam: Patient has like early osteomyelitis. Basic lab work and inflammatory markers ordered with plans for admission. Also concern for worsening peripheral vascular disease so a CTA runoff was ordered. Dr. Pérez will follow-up on the results of this and consult cardiology if needed. Orders placed to evaluate differential diagnosis based on the above differential, HPI and physical exam Lab Review: Laboratory results were reviewed and interpreted by myself the emergency room physician. Mild leukocytosis. No anemia. No renal failure. Mild elevation inflammatory markers with an ESR of 29 and a CRP of 11. Assessment of risk: Level of risk: Moderate risk patient. Multiple comorbidities. Osteomyelitis. Hospitalization considerations: Patient is being admitted. Reexamination: Patient remained stable. No increased work of breathing. No altered mental status. No focal motor deficits. Consultation: I spoke Dr. Pérez who will follow-up on the CTA. He will consult on the patient. Likely patient will need surgery. Consultation: I spoke with Dr. Skinner who is on-call for the hospital service who agrees to admission. Assessment and plan: Toe infection Osteomyelitis Hypertension ?IV Vanco and meropenem. IV hydralazine for blood pressure. -I discussed the patient with the hospitalist on-call who is admitting the patient. - Discussed findings and plan with patient. Answered any questions. - All laboratory values were reviewed and interpreted personally by myself, the ER physician - All imaging was reviewed and interpreted personally by myself, the ER physician. - Evaluation and treatment of this problem were appropriate in the emergency setting Lab Data 10/07/25 16:09 10/07/25 16:09 Laboratory Results WBC 12.02 10^3/uL (3.29-11.43) H 10/07/25 16:09 RBC 4.96 10^6/uL (3.85-5.65) 10/07/25 16:09 Hgb 14.00 g/dL (11.27-16.99) 10/07/25 16:09 Hct 43.1 % (37-53) 10/07/25 16:09 MCV 86.9 fl (82-101) 10/07/25 16:09 MCH 28.2 pg (27-33) 10/07/25 16:09 MCHC 32.5 g/dL (30-55) 10/07/25 16:09 RDW 13.4 % (12.1-15.1) 10/07/25 16:09 Plt Count 467 10^3/cmm (157-399) H 10/07/25 16:09 MPV 9.2 fL (7.4-10.4) 10/07/25 16:09 Neut % (Auto) 66.1 % 10/07/25 16:09 Lymph % (Auto) 25.2 % 10/07/25 16:09 Coffee % (Auto) 6.7 % 10/07/25 16:09 Eos % (Auto) 1.4 % 10/07/25 16:09 Baso % (Auto) 0.4 % 10/07/25 16:09 Neut # (Auto) 7.93 10^3/uL (1.8-7.7) H 10/07/25 16:09 Lymph # (Auto) 3.0 10^3/uL (0.8-4.8) 10/07/25 16:09 Coffee # (Auto) 0.8 10^3/uL (0.2-0.9) 10/07/25 16:09 Eos # (Auto) 0.2 10^3/uL (0.0-0.8) 10/07/25 16:09 Baso # (Auto) 0.1 10^3/uL (0.0-0.1) 10/07/25 16:09 Nucleated RBC % (auto) 0 % 10/07/25 16:09 Nucleated RBCs # 0.0 /100WBC 10/07/25 16:09 ESR 29 mm/hr (0-10) H 10/07/25 16:09 Sodium 141 mmol/L (136-145) 10/07/25 16:09 Potassium 3.8 mmol/L (3.5-5.1) 10/07/25 16:09 Chloride 103 mmol/L (98-107) 10/07/25 16:09 Carbon Dioxide 26 mmol/L (22-29) 10/07/25 16:09 Anion Gap 15.8 (5-19) 10/07/25 16:09 BUN 11 mg/dL (6-20) 10/07/25 16:09 Creatinine 0.7 mg/dL (0.7-1.2) 10/07/25 16:09 GFR Calculation 123.1 mL/min (90-130) 10/07/25 16:09 Glucose 76 mg/dL (65-115) 10/07/25 16:09 Calculated Osmolality 290 mOsm/kg (285-295) 10/07/25 16:09 Lactic Acid 0.7 mmol/L (0.5-2.2) 10/07/25 16:09 Calcium 8.9 mg/dL (8.5-10.5) 10/07/25 16:09 Total Bilirubin 0.5 mg/dL (0.15-1.2) 10/07/25 16:09 AST 18 U/L (0-40) 10/07/25 16:09 ALT 21 U/L (0-41) 10/07/25 16:09 Alkaline Phosphatase 97 U/L (40-130) 10/07/25 16:09 C-Reactive Protein 10.2 mg/L (0.0-4.9) H 10/07/25 16:09 Total Protein 6.9 g/dL (6.6-8.7) 10/07/25 16:09 Albumin 3.9 g/dL (3.5-5.2) 10/07/25 16:09 Globulin 3.0 g/dL (1.3-4.6) 10/07/25 16:09 XR interpretation done by ED provider, pending radiology final review Discharge Plan Discharge Patient Disposition: Admitted As Inpatient Clinical Impression: Osteomyelitis, Infection of toe, Hypertension Condition: Stable Coding Level of Care Code ED Marketing Liaison for Trish Ramirez
[2025-10-07 16:17] LABS: Hematocrit 43.1 % (37-53); Hemoglobin 14.00 g/dL (11.27-16.99); Mean Corpuscular HGB Conc 32.5 g/dL (30-55); Mean Corpuscular Hemoglobin 28.2 pg (27-33); Mean Corpuscular Volume 86.9 fl (82-101); Nucleated Red Blood Cells % 0 %; Platelet Count 467 10^3/cmm (157-399); Red Blood Count 4.96 10^6/uL (3.85-5.65); White Blood Count 12.02 10^3/uL (3.29-11.43)
--- NOTE | 2025-10-07 16:27 | XRR_ITS ---
PROCEDURE INFORMATION: Exam: XR Left Foot Exam date and time: 10/07/2025 4:41 PM Age: 45 years old Clinical indication: Pain; Foot; Left; Additional info: 2nd toe infection TECHNIQUE: Imaging protocol: Radiologic exam of the left foot. Views: 3 or more views. COMPARISON: CR XR foot LT min 3V* [id number] 03/25/2025 2:23 PM FINDINGS: Bones/joints: There are postsurgical changes related to 1st ray amputation. No acute fracture or dislocation. There are subtle cortical changes involving the distal 2nd phalanx which can relate to an infectious/inflammatory etiology such as osteomyelitis. Soft tissues: Soft tissue swelling of the 2nd digit. XR/XR foot LT min 3V* [id number] IMPRESSION: As above.
[2025-10-07 16:38] LABS: Alanine Aminotransferase 21 U/L (0-41); Albumin Level 3.9 g/dL (3.5-5.2); Alkaline Phosphatase 97 U/L (40-130); Anion Gap 15.8 (5-19); Aspartate Amino Transferase 18 U/L (0-40); Blood Urea Nitrogen 11 mg/dL (6-20); Calcium 8.9 mg/dL (8.5-10.5); Carbon Dioxide 26 mmol/L (22-29); Chloride 103 mmol/L (98-107); Globulin 3.0 g/dL (1.3-4.6); Glucose 76 mg/dL (65-115); Osmolality Calculated 290 mOsm/kg (285-295); Potassium 3.8 mmol/L (3.5-5.1); Sodium 141 mmol/L (136-145); Total Protein 6.9 g/dL (6.6-8.7)
--- NOTE | 2025-10-07 16:47 | CTR_ITS ---
PROCEDURE INFORMATION: Exam: CTA Abdominal Aorta and Bilateral Lower Extremities (Run-off) With Contrast Exam date and time: 10/07/2025 8:01 PM Age: 45 years old Clinical indication: Other: Toe infection; Prior surgery; Surgery date: 6+ months; Surgery type: Lt foot surgery TECHNIQUE: Imaging protocol: Computed tomographic angiography of the of the abdominal aorta, pelvis and bilateral lower extremities with contrast. 3D rendering (Not supervised by radiologist): MIP and/or 3D reconstructed images were created by the technologist. Radiation optimization: All CT scans at this facility use at least one of these dose optimization techniques: automated exposure control; mA and/or kV adjustment per patient size (includes targeted exams where dose is matched to clinical indication); or iterative reconstruction. Contrast material: OMNI 350; Contrast volume: 120 ml; Contrast route: INTRAVENOUS (IV); COMPARISON: CT angio abd aorta runof [id number] 01/11/2024 10:06 AM RADIATION DOSE METRICS: Total DLP (mGy-cm): 1306.16 FINDINGS: Aorta: Mild infrarenal abdominal aortic atherosclerosis is present. Celiac and mesenteric arteries: Vasculature: Mild short-segment atherosclerotic stenosis of the superior mesenteric artery. Renal arteries: No occlusion or significant stenosis. Right iliac arteries: Vasculature: Atherosclerotic changes of the right internal iliac artery without substantial stenosis. Right femoral/popliteal arteries: Right superficial femoral artery: Postoperative changes from endovascular stenting of the right superficial femoral artery. The stent is patent. Right infrapopliteal arteries: Vasculature: Mild multifocal atherosclerotic stenosis of the right tibioperoneal trunk. Vasculature: Moderate/severe multifocal atherosclerotic stenosis of the right anterior tibial artery. Vasculature: The right dorsalis pedis is patent and well opacified via the anterior tibial artery. Vasculature: Moderate/severe multifocal atherosclerotic stenosis of the right posterior tibial artery. Vasculature: Mild multifocal atherosclerotic stenosis of the right peroneal artery. Vasculature: The right plantar artery is patent and well opacified via the posterior tibial artery. Left iliac arteries: Vasculature: Atherosclerotic changes of the left common iliac artery without substantial stenosis. Vasculature: Atherosclerotic changes of the left internal iliac artery without substantial stenosis. Left femoral/popliteal arteries: Vasculature: Mild multifocal atherosclerotic stenosis of the left superficial femoral artery. 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 Findings are stable with comparison to the prior examination. Left infrapopliteal arteries: Vasculature: Moderate/severe multifocal atherosclerotic stenosis of the left anterior tibial artery. Vasculature: The left dorsalis pedis is patent and well opacified via the anterior tibial artery. Vasculature: Moderate/severe multifocal atherosclerotic stenosis of the left peroneal artery. Vasculature: Severe proximal multifocal atherosclerosis of the left posterior tibial artery. Limited evaluation for patency given venous phase of contrast. This may represent severe multifocal disease versus occlusion. The plantar artery is not well characterized on this exam. Liver: No mass. Gallbladder and biliary ducts: Unremarkable. No calcified stones. No ductal dilation. Pancreas: Unremarkable. No mass. No ductal dilation. Spleen: Normal. No splenomegaly. Adrenal glands: Normal. No mass. Kidneys and ureters: Normal. No mass. Stomach and bowel: Unremarkable. No obstruction. No mucosal thickening. Appendix: No evidence of appendicitis. Urinary bladder: Unremarkable. No mass. Reproductive: The prostate is enlarged. Intraperitoneal space: Unremarkable. No free air. No significant fluid collection. Lymph nodes: No lymphadenopathy. Bones/joints: Postoperative changes from left 1st digit amputation at the level of the tarsometatarsal joint. Small 1.2 x 2.6 cm fluid collection at the distal margin of the 1st metatarsal. Small locule of gas indicating soft tissue ulceration at this level. A component of subcortical osteopenia is noted in the 1st metatarsal head. Subcortical osteopenia of the 1st metatarsal without substantial erosion. Early signs of underlying osteomyelitis can not be completely excluded. Degenerative joint and disc disease is seen in the imaged spine. Soft tissues: See Bones/joints finding. CT/CT angio abd aorta runof [id number] IMPRESSION: 1. Three-vessel runoff to the level of the ankle in the right lower extremity. Moderate/severe peripheral vascular disease as above, predominantly involving the vasculature below the level of the knee. 2. Vasculature: Severe proximal multifocal atherosclerosis of the left posterior tibial artery. Limited evaluation for patency given venous phase of contrast. This may represent severe multifocal disease versus occlusion. The plantar artery is not well characterized on this exam. 3. Severe multifocal atherosclerotic changes of the left anterior tibial artery and peroneal artery with two-vessel runoff to the level of the ankle. 4. Soft tissue ulcer at the distal margin of the left 1st digit amputation with underlying fluid collection, indeterminate for abscess. Correlate with physical exam. Given subtle underlying 1st metatarsal head subcortical osteopenia (without substantial osseous erosion), early osteomyelitis can not be completely excluded. 5. Prostatomegaly. Correlate with PSA. 6. 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 Findings are stable with comparison to the prior examination. 7. No acute abdominopelvic process.
[2025-10-07 16:54] LABS: Lactic Sepsis W/Reflex 0.7 mmol/L (0.5-2.2)
[2025-10-07] MEDS: hyDRALAzine 20 mg/mL INJ 1 mL 10 MG IVP (17:01)
--- NOTE | 2025-10-07 17:35 | P.HP_ITS ---
Providers/Chief Complaint 2 Admitting Physician: Dr. Skinner Chief Complaint: Elisa marin, Nguyen foot wound, pain, History of Present Illness Eduardo Barlow is a 45 year old male w/ pmhx PVD, DM 2, HLD, current smoker, and s/p left hallux amputation presents today ED today via POV from Dr. Pérez's office with concerns of Left 2nd toe infection with suspected osteomyelitis. Patient states that on 09/30 he had an office visit with Dr. Pérez. During that encounter he peeled the callus from the tip of his left toe, creating a new small wound. Patient states that on Tuesday he started noticing that his left toe began to looking funny and made an appointment with Dr. Nguyễn for today. Patient reports associated signs/symptoms of low-grade fever, warmth up to left knee, pain, swelling, and funky smell. Patient to be admitted to hospitalist services with podiatry consultation services for further medical management and care. While in ED a CBC, CMP, ESR, CRP, lactic acid was collected, reviewed and results as follows: WBC 12.02, Neut 7.93, Plt 467-otherwise unremarkable. CMP unremarkable. ESR 29, CRP 10.2, lactic acid 0.7. Blood cultures obtained, pending. Wound culture and Gram stain obtained and pending. While in ED patient received following medications: Vancomycin 2000 mg IV, meropenem 500 mg IVP, hydralazine 10 mg IVP. Review of Systems 2 General: Reports: 10 or more systems reviewed and unremarkable except in HPI and below Medications/Allergies Home Medications ?Medication ?Instructions ?Recorded ?Confirmed ?Last Taken ?Type atorvastatin 80 mg tablet 80 mg PO DAILY 03/20/2409/2308/11/25 History clopidogrel 75 mg tablet 75 mg PO DAILY 03/20/2409/2308/11/25 History insulin lispro 100 unit/mL 0 sliding scale dose SUBCUT BIDPC 03/20/24 10/07/25 08/11/25 History subcutaneous pen CAM boot #1 ea 12/31/24 10/07/25 Unkn own Rx aspirin 81 mg tablet,delayed 81 mg PO DAILY 08/08/25 1 12/08/24 08/11/25 History release insulin human U-100 NPH-regulr 42 unit SUBCUT BID 07/2410/07/25 08/11/25 History 70-30 mix 100 unit/mL subcutaneous susp (Novolin 70/30 U-100 Insulin) hydrocodone 5 mg-acetaminophen 325 1 tab PO Q6H PRN pa in #20 tabs 08/12/25 10/07/25 Unknown Rx mg tablet ciprofloxacin HCl 500 mg tablet 500 mg PO BID 10 days #20 tabs 08/19/25 10/07/25 Unknown Rx clindamycin HCl 300 mg capsule 300 mg PO TID 10 days # 30 caps 08/19/25 10/07/25 Unknown Rx (Cleocin HCl) levofloxacin 500 mg tablet 500 mg PO DAILY #10 tabs 10/07/25 Unknown Rx Allergies Allergy/AdvReac Type Severity Reaction Status Date / Time No Known Allergies Allergy Verified 09/30/25 12:38 PFSH Acute 2 PFSH: Medical History Smoking Family History Mother CAD (coronary artery disease) Father CAD (coronary artery disease) Stroke Social History Smoking and tobacco/nicotine status: current every day tobacco/nicotine user cigarettes Packs smoked per day: 2 Years cigarettes smoked: 25 Alcohol intake: former Year of sobriety/quit date alcohol: 2013 Substance/Drug Use: never Marital status: Single Vitals/I&O/Wt Last Vital Signs Temp 98.0 F 10/07/25 15:47 Pulse 77 10/07/25 17:25 Resp 16 10/07/25 17:25 BP 113/62 10/07/25 17:25 Pulse Ox 97 10/07/25 17:25 O2 Del Method Room Air 10/07/25 16:59 Weight last 48 hrs Weight 145.15 kg Physical Exam 2 Narrative: General: A&Ox4, no apparent distress. Reports 1/10 on pain scale. Cardio: NSR, normal S1-S2 w/o any murmurs, rubs, or gallops and JVD normal Respiratory: Clear breathing on auscultation w/o any wheezes, stridor, rhonchi GI: Abd soft, non-tender, non-distended, normo-active bowel sounds present Neuro: Moves all extremities, no sensory deficits, Normal speech Behavior: Appropriate and cooperative Extremities: Left hallux amputation site with central dehiscence measuring 0.3 x 0.3 x 0.1 cm. Distal aspect of left second digit with new small superficial wound that was caused by patient peeling callus during exam on 09/30. Warmth up to knee, swelling. No clubbing, cyanosis or edema, Full ROM Data 10/07/25 16:09 10/07/25 16:09 Other Labs: 10/07: CTA runoff: ordered, pending 10/07: Left Foot XR: reviewed and results as follows: Bones/joints: There are post-surgical changes related to 1st ray amputation. No acute fracture or dislocation. There are subtle cortical changes involving the distal 2nd phalanx which can relate to an infectious/inflammatory etiology such as osteomyelitis. Soft tissues: Soft tissue swelling of the 2nd digit. Micro: Microbiology 10/07/25 16:09 Blood Culture - Preliminary Blood SPECIMEN COLLECTED 10/07/25 16:11 Blood Culture - Preliminary Blood SPECIMEN COLLECTED A&P Assessment and plan 1. Infection of toe: 2. Other acute osteomyelitis, other site: 3. Peripheral arterial disease: 4. Type 2 diabetes mellitus with other specified complication, with long-term current use of insulin: 5. Primary hypertension: 6. Hyperlipidemia, unspecified hyperlipidemia type: 7. Smoking: Plan: Left 2nd Toe Infection Possible osteomyelitis PAD ? WBC 12.02, Neut 7.93 ? ESR 29, CRP 10.2, lactic acid 0.7 ? Hx of lower extremity PAD stenting placement in [facility] 2 years ago ? 10/07: Left Foot XR: Bones/joints: There are post-surgical changes related to 1st ray amputation. No acute fracture or dislocation. There are subtle cortical changes involving the distal 2nd phalanx which can relate to an infectious/inflammatory etiology such as osteomyelitis. Soft tissues: Soft tissue swelling of the 2nd digit. ? 10/07: CTA runoff:ordered, pending. ? Podiatry consulted-Dr. Pérez. Recommendations and expertise appreciated. ? Blood culture ordered, pending ? MRSA swab ordered, pending. ? Wound culture and Gram stain obtained and pending. ? IV abx Zosyn 3.375gm IV q8hr, Linezolid 600mg IV q12hr ? Continue Plavix 75 mg, and aspirin 81 mg PO HTN ? No known prior history ? Received hydralazine 10 mg IVP in ED ? Vital signs as per protocol-monitor DM2 ? A1c ordered, pending. ? Blood glucose monitoring, ACHS ? Moderate regimen sliding scale ? Hypoglycemic protocol ? Cardiac carb consistent diet HLD ? Lipid panel ordered, pending. ? Continue home medication atorvastatin 80 mg PO dly Nicotine dependence ? Smoking cessation ? Nicotine patch 21 mg dly CODE STATUS: Full code GI prophylaxis: Protonix 40mg PO dly VTE prophylaxis: Lovenox 40mg SC dly PDMP PDMP Reviewed: Not Reviewed Attestations 2 Medical Necessity Statement*: Admitted under inpatient status. Given complexity of patient's presentation, co-morbid conditions, possible osteomyelitis, and required intensity of treatment, a hospitalization exceeding two midnights is anticipated. and High Time for a total of 78 minutes, includes reviewing past or interval history, examining/interviewing patient, placing orders, counseling patient/family/other support, updating patient/family/other support, discussing plan of care with staff, communicating with other healthcare providers, documenting encounter and coordinating care Diagnoses Infection of toe L08.9 Other acute osteomyelitis, other site M86.18 Osteomyelitis type: other acute Osteomyelitis location: other site Peripheral arterial disease I73.9 Type 2 diabetes mellitus with other specified complication, with long-term current use of insulin E11.69; Z79.4 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
[2025-10-07 18:37] LABS: Cholesterol 106 mg/dL (0-200); HDL Cholesterol 38 mg/dL (60-100); Triglycerides 48 mg/dL (0-150)
--- OUTSIDE RECORDS SUMMARY | 2025-10-07 19:11 | XMS_ITS | Clinical Summary ---
Author Organization [facility] de Address [address] [place] [address] Phone Care Team Providers Care Back Tacker Name Role Phone Unavailable Primary Care Provider Unavailabl e Allergies Active Allergy Reactions Criticality Noted Date Comments Spider Venom Swelling High 03/29/2024 Severe leg swelling, passed out from the bite Medications atorvastatin (LIPITOR) 80 mg tablet Take 1 Tablet (80 mg) by mouth daily. 100 Tablet 3 02/17/2024 Active aspirin (ECOTRIN EC) 81 mg Tablet, Delayed Release (E.C.) Take 1 Tablet (81 mg) by mouth daily. 02/17/2024 Active clopidogreL (PLAVIX) 75 mg Tablet Take 1 Tablet (75 mg) by mouth daily. 100 Tablet 3 02/17/2024 Active nicotine (NICODERM CQ) 21 mg/24 hr patch Apply 1 Patch to skin as directed every 24 hours. 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 02/16 Personal history of DVT (deep vein thrombosis) 0 02/17/2024 Encounters Date Type Department Care Team Description 09/24/2025 External Device Data [facility]STRACTION Provider, Abstract 09/24/2025 External Device Data [facility]STRACTION Provider, Abstract 08/13/2025 External Device Data [facility]STRACTION Provider, Abstract 08/06/2025 External Device Data [facility] ABSTRACTION Provider, Abstract from Last 3 Months Social History Tobacco Use Types Packs/Day Years Used Date Smoking Tobacco: Former Cigarettes 0 Q uit: 03/05/2024 Passive Smoke Exposure: Past Smokeless Tobacco: Never Alcohol Use Standard Drinks/Week Comments Never 0 (1 standard drink = 0.6 oz pur e alcohol) Feeling Safe Answer Date Recorded Are you in a relationship wi th someone who hurts you emotionally and/or physically? 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 Pulse 83 09/28/2024 2:19 PM SERVICE CREW LEADER Temperature 35.9 C (96.7 F) 02/22/2024 12:50 PM CDT Respiratory Rate 16 02/22/2024 3:20 PM CDT Oxygen Saturation 97% 09/28/2024 2:19 PM SERVICE CREW LEADER Inhaled Oxygen Concentration - - Weight 134.7 kg (297 lb) 09/28/2024 2:19 PM SERVICE CREW LEADER Height 198.1 cm (6' 6 ) 03/29/2024 1:51 PM CDT Body Mass Index 34.32 03/29/2024 1:51 PM CDT Plan of Treatment Health Maintenance Due Date Last Done Comments DTAP/TDAP/TD VACCINES (1 - Tdap) 2001 HEPATITIS B VACCINES (1 of 3 - 19+ 3-dose series) 01/23 INFLUENZA VACCINE (#1) 2025 HPV VACCINES (No Doses Required) Completed Medical Devices Implanted Type Area Hardware Engineering Manager Device Identifier Shelf Expiration Date Model / Serial / Lot Dev Sealangio Vip 8fr [id number] - [id number] Implanted:Qty : 1 on 02/22/2024 by Emanuel Flores MD at [facility] Closure Device Left: Groin [employer] [id number] 08/31/2024 [id number] / / [id number] Stent Viabahn Hep [id number] - [id number] Implanted:Qty : 1 on 02/22/2024 by Emanuel Flores MD at [facility] Stent Right: Superficial Femoral Artery [employer] [id number] 06/28/2026 [id number] [facility] / [id number] / Advance Directives For more information, please contact: [phone] Documents on File Type Date Recorded Patient Cutter Hot Knife Expl anation Advance Directive POA 02/17/2024 10:34 AM
--- NOTE | 2025-10-07 19:35 | P.CONIM_ITS ---
Providers/Reason For Consult 2 Consulting Physician/Specialty*: Emanuel Philip D.P.M./podiatry Reason for Consult*: Multiple wounds left foot Attending Physician: Miguel Skinner History of Present Illness History of Present Illness Eduardo Barlow is a 45 year old male who was seen earlier today in podiatry clinic with new ulceration to distal second digit after he peeled a callus off of it at the last office visit. 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 Patient has failed outpatient antibiotics and wound continues to progress. I discussed with patient that blood flow is likely the limiting factor in his healing process. Patient continues to smoke in excess of 2 packs a day. Due to general malaise and worsening of foot wounds and concern for osteomyelitis with positive probe to bone patient was advised to go to the emergency department for workup and evaluation. He was admitted and podiatry was consulted to evaluate and provide further treatment recommendations Review of Systems 2 General: Reports: 10 or more systems reviewed and unremarkable except in HPI and below Const: Denies: fever(s), chills, body aches or change in appetite Eyes: Denies: change in vision or blurry vision Card: Denies: chest pain, palpitations or irregular heart rhythm Resp: Denies: dyspnea GI: Denies: abdominal pain, nausea, vomiting or diarrhea Musc: Reports: joint stiffness Skin/Breast: Reports: non-healing lesions and lesions Neuro: Reports: numbness in extremities Medications/Allergies Home Medications ?Medication ?Instructions ?Recorded ?Confirmed ?Last Taken ?Type atorvastatin 80 mg tablet 80 mg PO DAILY 03/20/2409/2308/11/25 History clopidogrel 75 mg tablet 75 mg PO DAILY 03/20/2409/2308/11/25 History insulin lispro 100 unit/mL 0 sliding scale dose SUBCUT BIDPC 03/20/24 10/07/25 08/11/25 History subcutaneous pen CAM boot #1 ea 12/31/24 10/07/25 Unkn own Rx aspirin 81 mg tablet,delayed 81 mg PO DAILY 08/08/25 1 12/08/24 08/11/25 History release insulin human U-100 NPH-regulr 42 unit SUBCUT BID 07/2410/07/25 08/11/25 History 70-30 mix 100 unit/mL subcutaneous susp (Novolin 70/30 U-100 Insulin) hydrocodone 5 mg-acetaminophen 325 1 tab PO Q6H PRN pa in #20 tabs 08/12/25 10/07/25 Unknown Rx mg tablet ciprofloxacin HCl 500 mg tablet 500 mg PO BID 10 days #20 tabs 08/19/25 10/07/25 Unknown Rx clindamycin HCl 300 mg capsule 300 mg PO TID 10 days # 30 caps 08/19/25 10/07/25 Unknown Rx (Cleocin HCl) levofloxacin 500 mg tablet 500 mg PO DAILY #10 tabs 10/07/25 Unknown Rx Allergies Allergy/AdvReac Type Severity Reaction Status Date / Time No Known Allergies Allergy Verified 09/30/25 12:38 Current Medications Generic Name Dose Route Start Last Admin Trade Name Freq PRN Reason Stop Dose Admin Enoxaparin Sodium 40 mg 10/07/25 17:45 10/07/25 19:30 Enoxaparin 40 Mg/0.4 Ml Syringe SUBCUT 40 mg Q24H JUAN Administration PFSH Acute 2 PFSH: Medical History Smoking Family History Mother CAD (coronary artery disease) Father CAD (coronary artery disease) Stroke Social History Smoking and tobacco/nicotine status: current every day tobacco/nicotine user cigarettes Packs smoked per day: 2 Years cigarettes smoked: 25 Alcohol intake: former Year of sobriety/quit date alcohol: 2013 Substance/Drug Use: never Marital status: Single Vitals/I&O/Wt Last Vital Signs Temp 98.0 F 10/07/25 15:47 Pulse 79 10/07/25 19:00 Resp 16 10/07/25 19:00 BP 148/89 10/07/25 19:00 Pulse Ox 98 10/07/25 19:00 O2 Del Method Room Air 10/07/25 18:00 Weight last 48 hrs Weight 320 lb Physical Exam 2 Narrative: BELOW IS A FOCUSED LOWER EXTREMITY EXAM GENERAL: A&O x 3 VASCULAR: DP/PT pulses diminished, monophasic on hand-held Doppler DERMATOLOGICAL: Full-thickness ulceration to distal second digit measuring 0.4 x 0.4 x 0.4 cm positive probe to bone surrounding erythema. Medial hallux amputation site shows full-thickness ulceration measuring 0.2 x 0.2 x 0.3 cm MUSCULOSKELETAL: Tenderness with palpation of left foot second digit NEUROLOGICAL: Neurological sensation to the affected foot and ankle is present through L4-S1 dermatomes with no hyper/hypoesthesias, negative Tinel or Valleix's sign IMAGING: Three-view x-rays of left foot taken in the emergency department independently interpreted by me. These show erosive changes of distal phalanx of second digit consistent with osteomyelitis. CT angiogram also independently interpreted by me. This shows severe PAD to left lower extremity. Data 10/08/25 06:48 10/08/25 06:48 Micro: Microbiology 10/07/25 16:09 Blood Culture - Preliminary Blood SPECIMEN COLLECTED 10/07/25 16:11 Blood Culture - Preliminary Blood SPECIMEN COLLECTED A&P Assessment and plan 1. Osteomyelitis: 2. Type 2 diabetes mellitus with other specified complication, with long-term current use of insulin: 3. Infection of toe: 4. Peripheral arterial disease: Plan: Patient has chronic ulcerations to left foot. Etiology likely related to peripheral arterial disease. Continue antibiotics broad-spectrum. Await culture results from culture obtained in office. CT angiogram shows severe PAD left lower extremity. Patient will need angio for vascular optimization prior to surgical intervention from podiatry standpoint. This will optimize healing. Concern for proceeding with surgery without vascular optimization would be failure to heal and more proximal amputation. Okay for diet from podiatry standpoint at this time. Podiatry will round on patient daily and provide further treatment recommendations. PDMP PDMP Reviewed: Not Reviewed Coding Level of Care Code Acute Code for [facility] Diagnoses Osteomyelitis M86.9 Type 2 diabetes mellitus with other specified complication, with long-term current use of insulin E11.69; Z79.4 Diabetes mellitus longterm insulin use: with intermediate card tender use Diabetes mellitus complication status: with other specified complication Infection of toe L08.9 Peripheral arterial disease I73.9
[2025-10-07 19:55] LABS: Estmated Average Glucose 203; Hemoglobin A1C 8.7 % (4.0-6.0)
[2025-10-07] MEDS: iohexol 350 mg/mL 500 mL Btl (per mL) IV (20:09)
[2025-10-07 23:17] LABS: MRSA PCR OZH (swab) NOT DETECTED (Negative)
[2025-10-08] VITALS: BP 168/75; PULSE 78; RESP 16; TEMP 36.7; O2SAT 95
[2025-10-08 04:00] VITALS: BP 143/71; PULSE 75; RESP 17; TEMP 36.6; O2SAT 94
[2025-10-08] MEDS: linezolid premix 600 MG/300 ML PREMIX 300 MG IV ×2 (05:13→17:01)
[2025-10-08] MEDS: piperacillin-tazobactam 3.375 GM in sodium chloride 0.9% (plus) 50 ML IV ×3 (05:13→20:46)
[2025-10-08 07:06] LABS: Hematocrit 41.0 % (37-53); Hemoglobin 13.30 g/dL (11.27-16.99); Mean Corpuscular HGB Conc 32.4 g/dL (30-55); Mean Corpuscular Hemoglobin 28.1 pg (27-33); Mean Corpuscular Volume 86.7 fl (82-101); Nucleated Red Blood Cells % 0 %; Platelet Count 420 10^3/cmm (157-399); Red Blood Count 4.73 10^6/uL (3.85-5.65); White Blood Count 10.02 10^3/uL (3.29-11.43)
[2025-10-08 07:23] LABS: Alanine Aminotransferase 20 U/L (0-41); Albumin Level 3.7 g/dL (3.5-5.2); Alkaline Phosphatase 84 U/L (40-130); Anion Gap 12.8 (5-19); Aspartate Amino Transferase 17 U/L (0-40); Blood Urea Nitrogen 11 mg/dL (6-20); Calcium 8.3 mg/dL (8.5-10.5); Carbon Dioxide 25 mmol/L (22-29); Chloride 106 mmol/L (98-107); Globulin 2.4 g/dL (1.3-4.6); Glucose 150 mg/dL (65-115); Magnesium 1.9 mg/dL (1.7-2.3); Osmolality Calculated 292 mOsm/kg (285-295); Potassium 3.8 mmol/L (3.5-5.1); Sodium 140 mmol/L (136-145); Total Protein 6.1 g/dL (6.6-8.7)
[2025-10-08 07:26] VITALS: BP 150/71; PULSE 82; RESP 16; TEMP 36.8; O2SAT 94
--- NOTE | 2025-10-08 08:14 | P.PN_ITS ---
Subjective 2 Subjective: Patient is a 45-year-old male seen and examined at bedside on hospital rounds today. Patient laying in bed stating left foot pain but denies chest pain or shortness of breath, fever or chills, or worsening symptoms. Dr. Pérez reviewed patient's CTA with concern for moderate to severe peripheral arterial vascular disease requested vascular surgical consultation before proceeding with podiatry interventions. graciously agrees to consultation and requested patient be NPO midnight in anticipation for angiogram tomorrow. Patient is agreeable to plan interventions. Patient improved WBC 10.02 from 12.02, ESR 29, creatinine 0.5, glucose 150, hemoglobin A1c 8.7, C-reactive protein 10.2. Patient treated in the ER with with IV vancomycin and Merrem, transition to IV Zosyn on admission -continues currently. Greatly appreciate infectious disease consultation and antibiotic management with who will see the patient tomorrow. Pendng blood culture x 2 and wound cultures. Vitals/I&O/Wt Last Vital Signs Temp 98.2 F 10/08/25 07:26 Pulse 82 10/08/25 07:26 Resp 16 10/08/25 07:26 BP 150/71 10/08/25 07:26 Pulse Ox 94 10/08/25 07:26 O2 Del Method Room Air 10/08/25 07:26 10/07/25 10/08/25 10/08/25 22:59 06:59 14:59 Intake Total 400 / 400 300 / 700 240 / 240 Balance 400 / 400 300 / 700 240 / 240 Weight last 48 hrs Weight 144.809 kg Weight 144.809 kg Weight 145.15 kg Weight 145.15 kg Physical Exam 2 Narrative: General: A&Ox4, no apparent distress. Cardio: NSR, normal S1-S2 w/o any murmurs, rubs, or gallops and JVD normal Respiratory: Clear breathing on auscultation GI: Abd soft, non-tender, non-distended, normo-active bowel sounds present Neuro: Moves all extremities, no sensory deficits, Normal speech Behavior: Appropriate and cooperative Extremities: Left hallux amputation site with central dehiscence measuring 0.3 x 0.3 x 0.1 cm. Distal aspect of left second digit with new small superficial wound that was caused by patient peeling callus during exam on 09/30. Erythema to mid rios. No clubbing, cyanosis or edema, Full ROM Data 10/08/25 06:48 10/08/25 06:48 Micro: Microbiology 10/07/25 16:09 Blood Culture - Preliminary Blood SPECIMEN COLLECTED 10/07/25 16:11 Blood Culture - Preliminary Blood SPECIMEN COLLECTED A&P Assessment and plan 1. Infection of toe: 2. Other acute osteomyelitis, other site: 3. Peripheral arterial disease: 4. Type 2 diabetes mellitus with other specified complication, with long-term current use of insulin: 5. Primary hypertension: 6. Hyperlipidemia, unspecified hyperlipidemia type: 7. Smoking: Plan: Left 2nd Toe Infection Osteomyelitis PAD ? WBC 12.02--<10.02 ? ESR 29, CRP 10.2, lactic acid 0.7 ? Hx of right lower extremity PAD stenting placement in [facility] 2 years ago ? 10/07: Left Foot XR: Bones/joints: There are post-surgical changes related to 1st ray amputation. No acute fracture or dislocation. There are subtle cortical changes involving the distal 2nd phalanx which can relate to an infectious/inflammatory etiology such as osteomyelitis. Soft tissues: Soft tissue swelling of the 2nd digit. ? 10/07: CTA runoff: Three-vessel runoff to the level of the ankle in the right lower extremity. Moderate/severe peripheral vascular disease as above, predominantly involving the vasculature below the level of the knee. 2. Vasculature: Severe proximal multifocal atherosclerosis of the left posterior tibial artery. Limited evaluation for patency given venous phase of contrast. This may represent severe multifocal disease versus occlusion. The plantar artery is not well characterized on this exam. 3. Severe multifocal atherosclerotic changes of the left anterior tibial artery and peroneal artery with two-vessel runoff to the level of the ankle. 4. Soft tissue ulcer at the distal margin of the left 1st digit amputation with underlying fluid collection, indeterminate for abscess. Correlate with physical exam. Given subtle underlying 1st metatarsal head subcortical osteopenia (without substantial osseous erosion), early osteomyelitis can not be completely excluded. ? Greatly appreciate podiatry consultation and management with ? Blood culture ordered, pending. MRSA negative ? Greatly appreciate cardiology/vascular surgical consultation management with ? 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 Wound culture and Gram stain obtained and pending. ? IV abx Zosyn 3.375gm IV q8hr, Linezolid 600mg IV q12hr ? Continue Plavix 75 mg, and aspirin 81 mg PO ? Greatly appreciate continued IV antibiotic management and consultation with HTN ? No known prior history ? Received hydralazine 10 mg IVP in ED ? Blood Pressure stable ? PRN Hydralazine DM2 ? A1c 8.7 ? Blood glucose monitoring, ACHS ? Moderate regimen sliding scale ? Hypoglycemic protocol ? Cardiac carb consistent diet HLD ? Lipid panel with triglycerides 48, cholesterol 106, LDL 58, HDL 38 ? Continue home medication atorvastatin 80 mg PO dly Nicotine dependence ? Smoking cessation advised ? Smokes 2 packs cigarettes per day ? Nicotine patch 21 mg dly CODE STATUS: Full code GI prophylaxis: Protonix 40mg PO dly VTE prophylaxis: Lovenox 40mg SC dly PDMP PDMP Reviewed: Not Reviewed Attestations 2 Medical Necessity Statement*: Continue under inpatient status. Given complexity of patient's presentation, co-morbid conditions, osteomyelitis, and required intensity of treatment with surgical interventions, a hospitalization exceeding two midnights is anticipated. and High Time for a total of 60 minutes, includes reviewing past or interval history, examining/interviewing patient, placing orders, counseling patient/family/other support, updating patient/family/other support, discussing plan of care with staff, communicating with other healthcare providers, documenting encounter and coordinating care Diagnoses Infection of toe L08.9 Other acute osteomyelitis, other site M86.18 Osteomyelitis location: other site Osteomyelitis type: other acute Peripheral arterial disease I73.9 Type 2 diabetes mellitus with other specified complication, with long-term current use of insulin E11.69; Z79.4 Diabetes mellitus complication status: with other specified complication Diabetes mellitus truck terminal manager insulin use: with truck terminal manager use Primary hypertension I10 Hypertension type: primary hypertension Hyperlipidemia, unspecified hyperlipidemia type E78.5 Hyperlipidemia type: unspecified Smoking F17.200
[2025-10-08 11:26] VITALS: BP 151/73; PULSE 79; RESP 16; TEMP 36.9; O2SAT 95
--- NOTE | 2025-10-08 13:32 | P.CONIM_ITS ---
<Statement entered by Nitish Burch M.D - 10/17/25 10:46> Patient was cared for in conjunction with an advanced practice practitioner.? I reviewed the chart and all pertinent data including imaging, telemetry, and laboratory results.? I discussed the patient in detail with the advanced practice practitioner.? Please see? their documentation for consult note, testing results and agreed upon plan of care for the patient. Providers/Reason For Consult 2 Consulting Physician/Specialty*: Dr. Burch Reason for Consult*: Nonhealing wound left lower extremity Requesting Physician: Dr. Pérez Attending Physician: Marsha Trejo NP History of Present Illness History of Present Illness Eduardo Barlow is a 45 year old male history of type 2 diabetes, smoker, chronic wounds, hypercholesterolemia, came into the podiatry clinic with a new ulceration to his second digit after he peeled a callus off of it. 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 There was concern for osteomyelitis and patient was sent to the ER for further eval and treatment. Patient has a history of PAD with stenting to the right lower extremity at another facility a few years ago. 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 Denies fever chills or bodyaches. On exam he has 2+ monophasic PT and DP on the left with 1+ monophasic popliteal. No signs or symptoms of ischemia at this time. CTA aorta with runoff showed three-vessel runoff to the level of the ankle and the right lower extremity, moderate to severe PAD below the level of the knee, severe left posterior tibial artery stenosis, two-vessel runoff to the level of the ankle with chronically occluded left popliteal artery with distal reconstitution at the level of the tibioperoneal trunk and anterior tibial secondary to collateralization. We were consulted for peripheral intervention prior to surgery on the left lower extremity for healing purposes. At this time patient denies any significant pain to the area. Review of Systems 2 Narrative: Consitutional: denies fever, chills, body aches, or changes in appetite, denies abnormal weight loss Eyes: Denies changes in vision Card: Denies chest pain, palpitations, irregular heart rhythm, edema, syncope, shortness of breath, orthopnea, leg pain with exertion Resp: Denies shortness of breath, denies hemoptysis, denies cough GI: denies abdominal pain, denies nausea or voimting, denies blood in stool Musc: Denies extremity pain, denies limited range of motion or recent injury Skin: Reports recent wounds to the toe Neuro: Denies nubmness in extremities, h/a, s/s of stroke Medications/Allergies Home Medications ?Medication ?Instructions ?Recorded ?Confirmed ?Last Taken ?Type atorvastatin 80 mg tablet 80 mg PO DAILY 03/20/2409/2310/06/25 History clopidogrel 75 mg tablet 75 mg PO DAILY 03/20/2409/2310/07/25 History CAM boot #1 ea 12/31/24 10/08/25 Unkn own Rx aspirin 81 mg tablet,delayed 81 mg PO DAILY 08/08/25 1 12/09/24 10/07/25 History release insulin human U-100 NPH-regulr See Rx Instructions .Ro sauk-suiattle .COMPLEX 08/08/25 10/08/25 10/07/25 History 70-30 mix 100 unit/mL subcutaneous susp (Novolin 70/30 U-100 Insulin) hydrocodone 5 mg-acetaminophen 325 1 tab PO Q6H PRN pa in #20 tabs 08/12/25 10/08/25 Unknown Rx mg tablet Allergies Allergy/AdvReac Type Severity Reaction Status Date / Time No Known Allergies Allergy Verified 09/30/25 12:38 Current Medications Generic Name Dose Route Start Last Admin Trade Name Freq PRN Reason Stop Dose Admin Enoxaparin Sodium 40 mg 10/07/25 17:45 10/07/25 19:30 Enoxaparin 40 Mg/0.4 Ml Syringe SUBCUT 40 mg Q24H JUAN Administration Piperacillin Sod/Tazobactam 50 mls @ 12.5 mls/hr 10/08/25 04:00 10/08/25 11:19 Sod 3.375 gm/ Sodium Chloride IV 12.5 mls/hr Q8H JUAN Administration Protocol Linezolid 600 mg in 300 mls @ 300 mls/hr 10/08/25 04:00 10/08/25 06:55 Zyvox Premix IV Infused Q12H JUAN Infusion Protocol Nicotine 1 patch 10/08/25 05:00 10/08/25 05:12 Nicotine 21 Mg Patch TRANSDERMA 1 patch DAILY JUAN Administration Pantoprazole Sodium 40 mg 10/08/25 05:00 10/08/25 05:[address] 40 Mg Tablet PO 40 mg DAILY JUAN Administration PFSH Acute 2 PFSH: Medical History Smoking Family History Mother CAD (coronary artery disease) Father CAD (coronary artery disease) Stroke Social History Smoking and tobacco/nicotine status: current every day tobacco/nicotine user cigarettes Packs smoked per day: 2 Years cigarettes smoked: 25 Alcohol intake: former Year of sobriety/quit date alcohol: 2013 Substance/Drug Use: never Marital status: Single Vitals/I&O/Wt Last Vital Signs Temp 98.5 F 10/08/25 11:26 Pulse 79 10/08/25 11:26 Resp 16 10/08/25 11:26 BP 151/73 10/08/25 11:26 Pulse Ox 95 10/08/25 11:26 O2 Del Method Room Air 10/08/25 11:26 10/07/25 10/08/25 10/08/25 22:59 06:59 14:59 Intake Total 400 / 400 300 / 700 530 / 530 Balance 400 / 400 300 / 700 530 / 530 Weight last 48 hrs Weight 319 lb 4 oz Weight 319 lb 4 oz Weight 320 lb Weight 320 lb Physical Exam 2 Narrative: General: No apparent distress HENMT: normoceophalic Neck: No carotid bruit bilaterally Respiratory: Normal respiratory effort, clear to auscultation bilaterally throughout all lung muro, no use of accessory muscles Cardio: No JVD, regular rate, regular rhythm, S1 S2 normal, no murmurs, Vascular: peripheral pulses 2+ radial palpated bilaterally, 2+ PT and DP on LLE dopplered, 2 second capillary refill, 1+ popliteal left Neuro: Alert and oriented x4, no focal motor deficits Psych: Affect normal, denies suicidal ideation, mental status grossly normal Skin: slight swelling of left first digit amputation site, second digit wrapped with bandage, odor to the area Data 10/08/25 06:48 10/08/25 06:48 Micro: Microbiology 10/07/25 16:09 Blood Culture - Preliminary Blood SPECIMEN COLLECTED 10/07/25 16:11 Blood Culture - Preliminary Blood SPECIMEN COLLECTED A&P Assessment and plan 1. Peripheral arterial disease: 2. Smokin. Primary hypertension: 4. Hyperlipidemia, unspecified hyperlipidemia type: 5. Type 2 diabetes mellitus with other specified complication, with long-term current use of insulin: 6. 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 He has significang PAD. CTA showed chronic occlusion of the left popliteal artery with distal reconsitution, severe disease below the knee. Would recommend proceding with LLE angiogram, possible ASIAN ART CURATOR and stenting for optimal wound healing prior to surgical procedure. The risk and benefits were discussed in detail with the patient. The risk of bleeding, hematoma, vascular injury, myocardial infarction, renal failure and other concomitant complications were explained in detail. This will be done tomorrow around 10 AM. Continue aspirin, plavix, statin therapy. Thank you, Dr. Pérez, for allowing us to care for this very pleasant 45 year old gentleman. PDMP PDMP Reviewed: Not Reviewed Consult Attestations 2 Medical Necessity Statement: Deferred to primary Coding Level of Care Code Acute Code for [facility] Fwd Diagnoses Peripheral arterial disease I73.9 Smoking F17.200 Primary hypertension I10 Hypertension type: primary hypertension Hyperlipidemia, unspecified hyperlipidemia type E78.5 Hyperlipidemia type: unspecified Type 2 diabetes mellitus with other specified complication, with long-term current use of insulin E11.69; Z79.4 Diabetes mellitus custodial insulin use: with long distance billing operator use Diabetes mellitus complication status: with other specified complication 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
--- NOTE | 2025-10-08 14:30 | PC.NURSE ---
This nurse called report to FELIPA Hicks in CSU at 1430. Will tx to CSU after IV Zosyn is done running.
--- NOTE | 2025-10-08 14:48 | PM.PN ---
Subjective Subjective: Patient seen at bedside earlier. Resting comfortably. No overnight events. Vitals/I&O/Wt Last Vital Signs Temp 98.5 F 10/08/25 11:26 Pulse 79 10/08/25 11:26 Resp 16 10/08/25 11:26 BP 151/73 10/08/25 11:26 Pulse Ox 95 10/08/25 11:26 O2 Del Method Room Air 10/08/25 11:26 10/07/25 10/08/25 10/08/25 22:59 06:59 14:59 Intake Total 400 / 400 300 / 700 530 / 530 Balance 400 / 400 300 / 700 530 / 530 Weight last 48 hrs Weight 319 lb 4 oz Weight 319 lb 4 oz Weight 320 lb Weight 320 lb Physical Exam Narrative: BELOW IS A FOCUSED LOWER EXTREMITY EXAM GENERAL: A&O x 3 VASCULAR: DP/PT pulses diminished, monophasic on hand-held Doppler DERMATOLOGICAL: Full-thickness ulceration to distal second digit measuring 0.4 x 0.4 x 0.4 cm positive probe to bone surrounding erythema. Medial hallux amputation site shows full-thickness ulceration measuring 0.2 x 0.2 x 0.3 cm MUSCULOSKELETAL: Tenderness with palpation of left foot second digit NEUROLOGICAL: Neurological sensation to the affected foot and ankle is present through L4-S1 dermatomes with no hyper/hypoesthesias, negative Tinel or Valleix's sign IMAGING: Three-view x-rays of left foot taken in the emergency department independently interpreted by me. These show erosive changes of distal phalanx of second digit consistent with osteomyelitis. CT angiogram also independently interpreted by me. This shows severe PAD to left lower extremity. Data 10/08/25 06:48 10/08/25 06:48 Micro: Microbiology 10/07/25 16:09 Blood Culture - Preliminary Blood SPECIMEN COLLECTED 10/07/25 16:11 Blood Culture - Preliminary Blood SPECIMEN COLLECTED A&P Assessment and plan 1. Osteomyelitis: 2. Type 2 diabetes mellitus with other specified complication, with long-term current use of insulin: 3. Infection of toe: 4. Peripheral arterial disease: Plan: - Multiple wounds left foot in the presence of PAD -Labs and vitals reviewed - Elevated ESR and CRP -Cultures pending -Abx Zosyn/linezolid -Diet: Okay for diet from podiatry standpoint -Patient scheduled for angio tomorrow 10/09/2025. We will plan for surgical intervention pending results of angio. Likely for 10/10/2025 -Pain Mgmt: Per primary team -Weight bearing: For transfers only -Dressings: Dry sterile dressing -Continue current Abx therapy until ID and Sensitivity results -Trend labs -Discharge plan: To be determined -Podiatry will continue to round on patient daily and provide recommendations PDMP PDMP Reviewed: Not Reviewed Attestations Medical Necessity Statement*: See hospitalist note Coding Level of Care Code Acute Code for [facility] Fwd Diagnoses Osteomyelitis M86.9 Type 2 diabetes mellitus with other specified complication, with long-term current use of insulin E11.69; Z79.4 Diabetes mellitus complication status: with other specified complication Diabetes mellitus terminal make up operator insulin use: with senior living use Infection of toe L08.9 Peripheral arterial disease I73.9
--- NOTE | 2025-10-08 15:29 | PC.NURSE ---
patient received from med surg on floor at 1520. Patient does not have current cardiac monitoring orders and does not wish to put on a gown at this time. Nurse told patient that he didn't have t put one until crime lab analyst time.
--- NOTE | 2025-10-08 15:29 | PC.NURSE ---
This nurse safely transferred pt to CSU via wheelchair, accompanied by PALLAVI Serrano. FELIPA Hicks assumed care of pt at this time.
--- NOTE | 2025-10-08 17:45 | PC.NURSE ---
patient does not want to put on his gown until he absolutely has to. When I went to amie the patient pulses, patient said Why do you have to do this 18 hours early?
[2025-10-08 20:00] VITALS: RESP 18; TEMP 37.1
[2025-10-08] MEDS: MELATONIN 3 MG TABLET 6 MG PO (20:46)
--- NOTE | 2025-10-08 22:01 | PC.NURSE ---
Patient had complaints of back/hip pain and wanted to know if he could have medication to help relieve it. Contacted Dr. Larson, no new orders were given.
[2025-10-09] VITALS (22 sets, daily range): BP systolic 102–157; BP diastolic 59–85; PULSE 63–83; RESP 12–23; TEMP 36.6–36.8; O2SAT 94–96; BMI 36.0
[2025-10-09] MEDS: piperacillin-tazobactam 3.375 GM in sodium chloride 0.9% (plus) 50 ML IV (04:41)
[2025-10-09] MEDS: linezolid premix 600 MG/300 ML PREMIX 300 MG IV (04:41)
[2025-10-09 05:55] LABS: Hematocrit 42.7 % (37-53); Hemoglobin 13.80 g/dL (11.27-16.99); Mean Corpuscular HGB Conc 32.3 g/dL (30-55); Mean Corpuscular Hemoglobin 28.9 pg (27-33); Mean Corpuscular Volume 89.3 fl (82-101); Nucleated Red Blood Cells % 0 %; Platelet Count 379 10^3/cmm (157-399); Red Blood Count 4.78 10^6/uL (3.85-5.65); White Blood Count 9.30 10^3/uL (3.29-11.43)
[2025-10-09 06:35] LABS: Alanine Aminotransferase 21 U/L (0-41); Albumin Level 3.6 g/dL (3.5-5.2); Alkaline Phosphatase 84 U/L (40-130); Anion Gap 17.0 (5-19); Aspartate Amino Transferase 18 U/L (0-40); Blood Urea Nitrogen 10 mg/dL (6-20); Calcium 8.8 mg/dL (8.5-10.5); Carbon Dioxide 22 mmol/L (22-29); Chloride 103 mmol/L (98-107); Globulin 2.8 g/dL (1.3-4.6); Glucose 179 mg/dL (65-115); Magnesium 1.9 mg/dL (1.7-2.3); Osmolality Calculated 290 mOsm/kg (285-295); Potassium 4.0 mmol/L (3.5-5.1); Sodium 138 mmol/L (136-145); Total Protein 6.4 g/dL (6.6-8.7)
--- NOTE | 2025-10-09 09:14 | P.PN_ITS ---
Subjective 2 Subjective: Patient is a 45-year-old male seen and examined at bedside on hospital rounds this morning. Patient sitting up in bed with continued mild left foot pain, denies any new or worsening symptoms. Patient is anxious to have both his surgeries completed, stating that he really wanted to go home as soon as possible. Reviewed long-acting insulin dosing with the patient he states he takes 42 units in the morning and 27 units at night, working with pharmacy on a formulary alternative dosing of long-acting insulin as we do not have his insulin on him. Patient's vital signs are stable, mildly elevated blood pressure 157/75. Review of labs normal WBC 9.30, Hgb 13.80, creatinine 0.6, mildly elevated glucose 179. Patient is pending angiogram this morning, awaiting further plans on surgical interventions afterwards. Will continue IV antibiotic therapy and medical management inpatient. Vitals/I&O/Wt Last Vital Signs Temp 98.2 F 10/09/25 07:49 Pulse 71 10/09/25 07:49 Resp 16 10/09/25 07:49 BP 157/75 10/09/25 07:49 Pulse Ox 95 10/09/25 07:49 O2 Del Method Room Air 10/08/25 11:26 10/08/25 10/09/25 10/09/25 22:59 06:59 14:59 Intake Total 830 / 1360 350 / 1710 50 / 50 Balance 830 / 1360 350 / 1710 50 / 50 Weight last 48 hrs Weight 145.15 kg Weight 144.809 kg Weight 144.809 kg Weight 145.15 kg Weight 145.15 kg Physical Exam 2 Narrative: General: A&Ox4, no apparent distress. Cardio: NSR, normal S1-S2 w/o any murmurs, rubs, or gallops and JVD normal Respiratory: Clear breathing on auscultation GI: Abd soft, non-tender, non-distended, normo-active bowel sounds present Neuro: Moves all extremities, no sensory deficits, Normal speech Behavior: Appropriate and cooperative Extremities: Left hallux amputation site with central dehiscence measuring 0.3 x 0.3 x 0.1 cm. Distal aspect of left second digit with new small superficial wound that was caused by patient peeling callus during exam on 09/30. Improving erhtyema. No clubbing, cyanosis or edema, Full ROM Data 10/09/25 05:21 10/09/25 05:21 Micro: Microbiology 10/07/25 16:11 Blood Culture - Preliminary Blood NEGATIVE TO DATE 10/07/25 16:09 Blood Culture - Preliminary Blood NEGATIVE TO DATE A&P Assessment and plan 1. Infection of toe: 2. Other acute osteomyelitis, other site: 3. Peripheral arterial disease: 4. Type 2 diabetes mellitus with other specified complication, with long-term current use of insulin: 5. Primary hypertension: 6. Hyperlipidemia, unspecified hyperlipidemia type: 7. Smoking: Plan: Left 2nd Toe Infection Osteomyelitis PAD ? WBC 12.02--<10.02 ? ESR 29, CRP 10.2, lactic acid 0.7 ? Hx of right lower extremity PAD stenting placement in [facility] 2 years ago ? 10/07: Left Foot XR: Bones/joints: There are post-surgical changes related to 1st ray amputation. No acute fracture or dislocation. There are subtle cortical changes involving the distal 2nd phalanx which can relate to an infectious/inflammatory etiology such as osteomyelitis. Soft tissues: Soft tissue swelling of the 2nd digit. ? 10/07: CTA runoff: Three-vessel runoff to the level of the ankle in the right lower extremity. Moderate/severe peripheral vascular disease as above, predominantly involving the vasculature below the level of the knee. 2. Vasculature: Severe proximal multifocal atherosclerosis of the left posterior tibial artery. Limited evaluation for patency given venous phase of contrast. This may represent severe multifocal disease versus occlusion. The plantar artery is not well characterized on this exam. 3. Severe multifocal atherosclerotic changes of the left anterior tibial artery and peroneal artery with two-vessel runoff to the level of the ankle. 4. Soft tissue ulcer at the distal margin of the left 1st digit amputation with underlying fluid collection, indeterminate for abscess. Correlate with physical exam. Given subtle underlying 1st metatarsal head subcortical osteopenia (without substantial osseous erosion), early osteomyelitis can not be completely excluded. ? Greatly appreciate podiatry consultation and management with ? Blood culture x2 NGTD. MRSA negative ? Greatly appreciate cardiology/vascular surgical consultation management with ? NPO currently with planned LLE angiogram - possible DATABASES SOFTWARE CONSULTANT and stenting ? Wound culture and Gram stain obtained and pending. ? IV abx Zosyn 3.375gm IV q8hr, Linezolid 600mg IV q12hr ? Continue Plavix 75 mg, and aspirin 81 mg PO ? Greatly appreciate continued IV antibiotic management and consultation with HTN ? No known prior history ? Received hydralazine 10 mg IVP in ED ? Blood Pressure stable ? PRN Hydralazine DM2 ? A1c 8.7 ? Blood glucose monitoring, ACHS ? Moderate regimen sliding scale ? Hypoglycemic protocol ? Cardiac carb consistent diet HLD ? Lipid panel with triglycerides 48, cholesterol 106, LDL 58, HDL 38 ? Continue home medication atorvastatin 80 mg PO dly Nicotine dependence ? Smoking cessation advised ? Smokes 2 packs cigarettes per day ? Nicotine patch 21 mg dly Insomnia ? Melatonin 6mg nightly ? PRN Temazepam 15mg HS CODE STATUS: Full code GI prophylaxis: Protonix 40mg PO dly VTE prophylaxis: Lovenox 40mg SC dly PDMP PDMP Reviewed: Not Reviewed Attestations 2 Medical Necessity Statement*: Continue under inpatient status. Given complexity of patient's presentation, co-morbid conditions, osteomyelitis, and required intensity of treatment with surgical interventions, a hospitalization exceeding two midnights is anticipated. and High Time for a total of 55 minutes, includes reviewing past or interval history, examining/interviewing patient, placing orders, counseling patient/family/other support, updating patient/family/other support, discussing plan of care with staff, communicating with other healthcare providers, documenting encounter and coordinating care Diagnoses Infection of toe L08.9 Other acute osteomyelitis, other site M86.18 Osteomyelitis location: other site Osteomyelitis type: other acute Peripheral arterial disease I73.9 Type 2 diabetes mellitus with other specified complication, with long-term current use of insulin E11.69; Z79.4 Diabetes mellitus complication status: with other specified complication Diabetes mellitus jail insulin use: with jail use Primary hypertension I10 Hypertension type: primary hypertension Hyperlipidemia, unspecified hyperlipidemia type E78.5 Hyperlipidemia type: unspecified Smoking F17.200
--- NOTE | 2025-10-09 11:27 | W.PM.OPSUD ---
Surgery/Procedure H&P Update DATE OF PROCEDURE: October 09, 2025 DATE H&P PERFORMED: 10/08/25 H&P UPDATE INFORMATION: I have reviewed H&P completed within last 30 days, I have examined patient prior to procedure and No changes to prior documentation PREOP DIAGNOSIS: Critical limb ischemia/ Non-healing wound/ Severe Peripheral artery disease PRIMARY INDICATION FOR PROCEDURE: Critical limb ischemia / Non-healing wound / Severe Peripheral artery disease PLANNED PROCEDURE: Critical limb ischemia / Non-healing wound / Severe Peripheral artery disease PATIENT REASSESSED PRIOR TO SEDATION, WITH NO CHANGE NOTED: Yes PHYSICAL EXAM: alert, oriented x 3, clear to auscultation bilaterally and regular rate & rhythm AIRWAY EVAL/ANESTHESIA PLAN: normal airway, ASA III, Local Anesthesia, Risks, benefits & alternatives of sedation and/or procedure discussed and Patient agrees to continue as planned ADDITIONAL INFORMATION: Moderate sedation
--- NOTE | 2025-10-09 11:29 | PC.NURSE ---
patient left for laborer pipelines at 1120 with Brittany.
--- NOTE | 2025-10-09 12:17 | P.PN_ITS ---
<Statement entered by Nitish Burch M.D - 10/17/25 10:47> Patient was cared for in conjunction with an advanced practice practitioner.? I reviewed the chart and all pertinent data including imaging, telemetry, and laboratory results.? I discussed the patient in detail with the advanced practice practitioner.? Please see? their documentation for progress note, testing results and agreed upon plan of care for the patient. Subjective 2 Subjective: Patient seen today and states he is ready for his procedure. Otherwise no pain in his leg. He is ready to go for his procedure today Vitals/I&O/Wt Last Vital Signs Temp 97.9 F 10/09/25 11:15 Pulse 67 10/09/25 11:15 Resp 16 10/09/25 11:15 BP 146/76 10/09/25 11:15 Pulse Ox 96 10/09/25 11:15 O2 Del Method Room Air 10/08/25 11:26 10/08/25 10/09/25 10/09/25 22:59 06:59 14:59 Intake Total 830 / 1360 350 / 1710 50 / 50 Balance 830 / 1360 350 / 1710 50 / 50 Weight last 48 hrs Weight 320 lb Weight 319 lb 4 oz Weight 319 lb 4 oz Weight 320 lb Weight 320 lb Physical Exam 2 Narrative: General: No apparent distress HENMT: normoceophalic Neck: No carotid bruit bilaterally Respiratory: Normal respiratory effort, clear to auscultation bilaterally throughout all lung muro, no use of accessory muscles Cardio: No JVD, regular rate, regular rhythm, S1 S2 normal, no murmurs, Vascular: peripheral pulses 2+ radial palpated bilaterally Neuro: Alert and oriented x4, no focal motor deficits Psych: Affect normal Skin: slight swelling of left first digit amputation site, second digit wrapped with bandage, odor to the area Data 10/09/25 05:21 10/09/25 05:21 Micro: Microbiology 10/07/25 16:11 Blood Culture - Preliminary Blood NEGATIVE TO DATE 10/07/25 16:09 Blood Culture - Preliminary Blood NEGATIVE TO DATE A&P Assessment and plan 1. Peripheral arterial disease: 2. Smokin. Primary hypertension: 4. Hyperlipidemia, unspecified hyperlipidemia type: 5. Type 2 diabetes mellitus with other specified complication, with long-term current use of insulin: 6. 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 Continue aspirin and Plavix. PDMP PDMP Reviewed: Not Reviewed Attestations 2 Medical Necessity Statement*: Defer to primary Coding Level of Care Code Acute Code for [facility] Fwd Diagnoses Peripheral arterial disease I73.9 Smoking F17.200 Primary hypertension I10 Hypertension type: primary hypertension Hyperlipidemia, unspecified hyperlipidemia type E78.5 Hyperlipidemia type: unspecified Type 2 diabetes mellitus with other specified complication, with long-term current use of insulin E11.69; Z79.4 Diabetes mellitus complication status: with other specified complication Diabetes mellitus longterm insulin use: with terminal operations supervisor use 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
--- NOTE | 2025-10-09 13:49 | PC.NURSE ---
patient arrived back on floor at 1300 with Ivania Contreras and Owen Contreras at bedside. Patient has minx closure in place with no hematoma noted. Patient instructed to keep leg straight for the next 4 hours with an up time of 1630. Patient bed locked at 30 degrees. Currently running 50cc/hr of ns. Blood pressure set to take every 15 minutes.
--- NOTE | 2025-10-09 14:44 | P.CONIM_ITS ---
Providers/Reason For Consult 2 Consulting Physician/Specialty*: Velma Patel/ Infectious Disease Reason for Consult*: Osteomyelitis, wound dehiscence Requesting Physician: Marsha Trejo NP Attending Physician: Marsha Trejo NP History of Present Illness History of Present Illness Eduardo Barlow is a 45 year old male with uncontrolled diabetes mellitus, last A1c 8.7 from October 07, 2025, severe peripheral artery disease status post angiogram today, history of chronic nonhealing wound over the left hallux status post left hallux amputation with no signs of proximal osteomyelitis at that time in July 2025. Subsequently he has had issues with wound dehiscence and poor healing. Additionally has developed a new ulceration over the second digit after he picked on a callus. He presented to the emergency room on October 07, 2025 due to increased drainage from his wound. Also reported low-grade fever and subjective chills at home. Found to have a leukocytosis of 12.2. Minimally elevated CRP at 10.2. Normal lactate. CTA of the affected limb was performed which showed severe multifocal atherosclerosis of the left posterior tibial artery with possible occlusion. He is status post angiogram today. Additionally noted multifocal atherosclerotic changes over the left anterior tibial and peroneal artery with two-vessel runoff to the level of the ankle. CTA additionally makes note of soft tissue ulcer at the distal margin of the left first digit amputation with underlying fluid collection possibly an abscess. Subtle first metatarsal head subcortical osteopenia versus early osteomyelitis. X-ray of the foot on admission had additionally shown subtle cortical changes involving the distal second phalanx possibly osteomyelitis. Review of Systems 2 General: Reports: 10 or more systems reviewed and unremarkable except in HPI and below Const: Denies: fever(s), chills or body aches Eyes: Denies: change in vision, blurry vision or photophobia ENMT: Reports: hoarseness; Denies: throat pain, enlarged tonsils, odynophagia or nasal congestion Card: Denies: chest pain, palpitations, irregular heart rhythm, edema, swelling of feet/ankles, lightheadedness, pre-syncope, dyspnea on exertion or orthopnea Resp: Denies: dyspnea, productive cough, non-productive cough, wheezing, stridor, pain on inspiration, change in phlegm color, hemoptysis or chest congestion GI: Denies: abdominal pain, nausea, vomiting, hematemesis, coffee ground emesis, dysphagia, heartburn, diarrhea, constipation, GI cramping, change in stool character, hematochezia or melena : Denies: flank pain, dysuria, urinary frequency, urinary urgency, urinary hesitancy or hematuria Musc: Denies: neck pain, back pain, extremity pain, joint swelling, joint warmth or deformity Neuro: Denies: headache(s), numbness in extremities, weakness in extremities, sensory changes, difficulty walking, frequent falls, dizziness, vertigo, behavioral changes, Slurred speech present or seizure-like activity Psych: Denies: anxiety, depression, suicidal ideation or homicidal ideation Endo: Denies: polyuria, polydipsia, tired all the time, cold intolerance or hot flashes Galo/Lymph: Denies: easy bruising or easy bleeding Medications/Allergies Home Medications ?Medication ?Instructions ?Recorded ?Confirmed ?Last Taken ?Type atorvastatin 80 mg tablet 80 mg PO DAILY 03/20/2409/2310/06/25 History clopidogrel 75 mg tablet 75 mg PO DAILY 03/20/2409/2310/07/25 History CAM boot #1 ea 12/31/24 10/08/25 Unkn own Rx aspirin 81 mg tablet,delayed 81 mg PO DAILY 08/08/25 1 12/09/24 10/07/25 History release insulin human U-100 NPH-regulr See Rx Instructions .Amy martineze .COMPLEX 08/08/25 10/08/25 10/07/25 History 70-30 mix 100 unit/mL subcutaneous susp (Novolin 70/30 U-100 Insulin) hydrocodone 5 mg-acetaminophen 325 1 tab PO Q6H PRN pa in #20 tabs 08/12/25 10/08/25 Unknown Rx mg tablet Allergies Allergy/AdvReac Type Severity Reaction Status Date / Time No Known Allergies Allergy Verified 09/30/25 12:38 Current Medications Generic Name Dose Route Start Last Admin Trade Name Freq PRN Reason Stop Dose Admin Aspirin 81 mg 10/09/25 05:00 10/09/25 04:42 Aspirin 81 Mg Ec Tablet PO 81 mg DAILY JUAN Administration Atorvastatin Calcium 80 mg 10/09/25 05:00 10/09/25 04:42 Atorvastatin 40 Mg Tablet PO 80 mg DAILY JUAN Administration Clopidogrel Bisulfate 75 mg 10/09/25 05:00 10/09/25 04:42 Clopidogrel 75 Mg Tablet PO 75 mg DAILY JUAN Administration Enoxaparin Sodium 40 mg 10/07/25 17:45 10/08/25 17:01 Enoxaparin 40 Mg/0.4 Ml Syringe SUBCUT 40 mg Q24H JUAN Administration Sodium Chloride 1,000 mls @ 50 mls/hr 10/09/25 09:00 10/09/25 09:10 Sodium Chloride 0.9% IV 10/10/25 04:59 50 mls/hr .Q20H ONE Administration Insulin Aspart 42 unit 10/09/25 08:30 10/09/25 08:28 Insulin Aspart 70/30 100 Units/1 Ml SUBCUT Not Given 0800 JUAN Insulin Human Lispro 0 unit 10/08/25 18:00 10/09/25 13:19 Insulin Lispro 100 Unit/1 Ml SUBCUT Not Given WM&BEDTIME JUAN Protocol Melatonin 6 mg 10/08/25 21:00 10/08/25 20:46 Melatonin 3 Mg Tablet PO 6 mg BEDTIME JUAN Administration Nicotine 1 patch 10/08/25 05:00 10/09/25 05:07 Nicotine 21 Mg Patch TRANSDERMA Not Given DAILY JUAN Pantoprazole Sodium 40 mg 10/08/25 05:00 10/09/25 04:[address] 40 Mg Tablet PO 40 mg DAILY JUAN Administration Temazepam 15 mg 10/08/25 18:18 10/08/25 20:46 Temazepam 15 Mg Capsule PO 15 mg BEDTIME PRN Administration INSOMNIA PFSH Acute 2 PFSH: Medical History Smoking Family History Mother CAD (coronary artery disease) Father CAD (coronary artery disease) Stroke Social History Smoking and tobacco/nicotine status: current every day tobacco/nicotine user cigarettes Packs smoked per day: 2 Years cigarettes smoked: 25 Alcohol intake: former Year of sobriety/quit date alcohol: 2013 Substance/Drug Use: never Marital status: Single Vitals/I&O/Wt Last Vital Signs Temp 97.9 F 10/09/25 11:15 Pulse 78 10/09/25 13:48 Resp 22 H 10/09/25 13:48 BP 110/62 10/09/25 13:48 Pulse Ox 96 10/09/25 11:15 O2 Del Method Room Air 10/09/25 13:48 10/08/25 10/09/25 10/09/25 22:59 06:59 14:59 Intake Total 830 / 1360 350 / 1710 50 / 50 Balance 830 / 1360 350 / 1710 50 / 50 Weight last 48 hrs Weight 145.15 kg Weight 144.809 kg Weight 144.809 kg Weight 145.15 kg Weight 145.15 kg Physical Exam 2 Narrative: General: No acute distress, AO x3 HEENT: PERRLA, pupils bilaterally equal and reactive, pallors not present Chest: Normal vesicular breath sounds, no added sounds, equal good air entry bilaterally CVS: S1-S2 regular, no murmurs, no tachycardia, no gallops, no rubs Abdomen: Soft, nontender, no organomegaly, bowel sounds present Neuro: No focal deficits, no facial deformity, AO x3, power 5/5 in all limbs Extremities: Dry gangrene affecting the tip of second toe on the left foot. Erythema and mild fluctuance on the plantar aspect at the amputation site Data 10/09/25 05:21 10/09/25 05:21 Micro: Microbiology 10/07/25 16:11 Blood Culture - Preliminary Blood NEGATIVE TO DATE 10/07/25 16:09 Blood Culture - Preliminary Blood NEGATIVE TO DATE Other data: Radiology Impressions Foot X-Ray 10/07/25 16:27 IMPRESSION: As above. Aorta w/Runoff CTA 10/07/25 16:47 IMPRESSION: 1. Three-vessel runoff to the level of the ankle in the right lower extremity. Moderate/severe peripheral vascular disease as above, predominantly involving the vasculature below the level of the knee. 2. Vasculature: Severe proximal multifocal atherosclerosis of the left posterior tibial artery. Limited evaluation for patency given venous phase of contrast. This may represent severe multifocal disease versus occlusion. The plantar artery is not well characterized on this exam. 3. Severe multifocal atherosclerotic changes of the left anterior tibial artery and peroneal artery with two-vessel runoff to the level of the ankle. 4. Soft tissue ulcer at the distal margin of the left 1st digit amputation with underlying fluid collection, indeterminate for abscess. Correlate with physical exam. Given subtle underlying 1st metatarsal head subcortical osteopenia (without substantial osseous erosion), early osteomyelitis can not be completely excluded. 5. Prostatomegaly. Correlate with PSA. 6. 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 Findings are stable with comparison to the prior examination. 7. No acute abdominopelvic process. Laboratory Results WBC 9.30 10^3/uL (3.29-11.43) 10/09/25 05:21 RBC 4.78 10^6/uL (3.85-5.65) 10/09/25 05:21 Hgb 13.80 g/dL (11.27-16.99) 10/09/25 05:21 Hct 42.7 % (37-53) 10/09/25 05:21 MCV 89.3 fl (82-101) 10/09/25 05:21 MCH 28.9 pg (27-33) 10/09/25 05:21 MCHC 32.3 g/dL (30-55) 10/09/25 05:21 RDW 13.4 % (12.1-15.1) 10/09/25 05:21 Plt Count 379 10^3/cmm (157-399) 10/09/25 05:21 MPV 9.1 fL (7.4-10.4) 10/09/25 05:21 Neut % (Auto) 53.3 % 10/09/25 05:21 Lymph % (Auto) 31.7 % 10/09/25 05:21 [place] % (Auto) 11.5 % 10/09/25 05:21 Eos % (Auto) 2.7 % 10/09/25 05:21 Baso % (Auto) 0.6 % 10/09/25 05:21 Neut # (Auto) 4.95 10^3/uL (1.8-7.7) 10/09/25 05:21 Lymph # (Auto) 3.0 10^3/uL (0.8-4.8) 10/09/25 05:21 [place] # (Auto) 1.1 10^3/uL (0.2-0.9) H 10/09/25 05:21 Eos # (Auto) 0.3 10^3/uL (0.0-0.8) 10/09/25 05:21 Baso # (Auto) 0.1 10^3/uL (0.0-0.1) 10/09/25 05:21 Nucleated RBC % (auto) 0 % 10/09/25 05:21 Nucleated RBCs # 0.0 /100WBC 10/09/25 05:21 ESR 29 mm/hr (0-10) H 10/07/25 16:09 Sodium 138 mmol/L (136-145) 10/09/25 05:21 Potassium 4.0 mmol/L (3.5-5.1) 10/09/25 05:21 Chloride 103 mmol/L (98-107) 10/09/25 05:21 Carbon Dioxide 22 mmol/L (22-29) 10/09/25 05:21 Anion Gap 17.0 (5-19) 10/09/25 05:21 BUN 10 mg/dL (6-20) 10/09/25 05:21 Creatinine 0.6 mg/dL (0.7-1.2) L 10/09/25 05:21 GFR Calculation 147.0 mL/min (90-130) H 10/09/25 05:21 Glucose 179 mg/dL (65-115) H 10/09/25 05:21 POC Glucose 178 mg/dL (70-110) H 10/09/25 11:14 Estimat Average Glucose 203 10/07/25 16:09 Hemoglobin A1c 8.7 % (4.0-6.0) H 10/07/25 16:09 Calculated Osmolality 290 mOsm/kg (285-295) 10/09/25 05:21 Lactic Acid 0.7 mmol/L (0.5-2.2) 10/07/25 16:09 Calcium 8.8 mg/dL (8.5-10.5) 10/09/25 05:21 Magnesium 1.9 mg/dL (1.7-2.3) 10/09/25 05:21 Total Bilirubin 0.5 mg/dL (0.15-1.2) 10/09/25 05:21 AST 18 U/L (0-40) 10/09/25 05:21 ALT 21 U/L (0-41) 10/09/25 05:21 Alkaline Phosphatase 84 U/L (40-130) 10/09/25 05:21 C-Reactive Protein 10.2 mg/L (0.0-4.9) H 10/07/25 16:09 Total Protein 6.4 g/dL (6.6-8.7) L 10/09/25 05:21 Albumin 3.6 g/dL (3.5-5.2) 10/09/25 05:21 Globulin 2.8 g/dL (1.3-4.6) 10/09/25 05:21 Triglycerides 48 mg/dL (0-150) 10/07/25 16:59 Cholesterol 106 mg/dL (0-200) 10/07/25 16:59 LDL Cholesterol, Calc 58 mg/dL (50-129) 10/07/25 16:59 HDL Cholesterol 38 mg/dL (60-100) L 10/07/25 16:59 LDL/HDL Ratio 1.53 RATIO (0.00-3.22) 10/07/25 16:59 Cholesterol/HDL Ratio 2.79 mg/dL (1.0-5.00) 10/07/25 16:59 Nasal MRSA (PCR) Not detected (Negative) 10/07/25 21:15 A&P Assessment and plan 1. Severe peripheral arterial disease: 2. Uncontrolled diabetes mellitus: 3. Gangrene of toe: 4. Osteomyelitis of metatarsal: Suspected diagnosis at this time 5. Foot abscess, left: Plan: 45-year-old male with uncontrolled diabetes mellitus, peripheral artery disease, status post left hallux amputation in July 2025, currently admitted to the hospital with poorly healing post amputation wound, with some mild surrounding erythema and fluctuance. CTA of the lower extremity showed peripheral artery disease affecting the posterior tibial and anterior tibial arteries, he is status post angiogram today, did not require any stents. On exam noted to have gangrene affecting tip of the second toe, mild erythema and fluctuance around the healing previous amputation wound. CT of the lower extremity raises concern for small abscess at the tip of the first metatarsal with possible osteomyelitis. Patient is currently planned for a second digit amputation tomorrow and I&D of the above abscess with inspection of the first metatarsal. Depending on OR findings, we will decide further course with regards to IV versus oral antibiotics Currently blood culture remains negative to date Prior wound cultures from July 2025, February 2025, January 2025 and December 2024 have been polymicrobial, there is still showing MSSA, group B strep, Prevotella, Bacteroides and Peptostreptococcus. He has received outpatient treatment with oral levofloxacin with continued symptoms. Currently patient is on empiric treatment with IV piperacillin/tazobactam and linezolid. Discontinue both antibiotics. Changed to ceftriaxone 2 g IV every 24 hours per plus oral metronidazole 500 mg twice daily in keeping with past cultures. MRSA nasal screen is currently negative. Will follow with OR findings and operating room culture to [facility] discharge antibiotics PDMP PDMP Reviewed: Not Reviewed Consult Attestations 2 Medical Necessity Statement: per admitting Coding Level of Care Code Acute Code for Chg Fwd High MDM includes number and complexity of problems actively addressed during encounter, amount and/or complexity of data reviewed/ordered and described risk of complication, morbidity or mortality of management as documented Diagnoses Severe peripheral arterial disease I73.9 Uncontrolled diabetes mellitus Gangrene of toe I96 Osteomyelitis of metatarsal M86.9 Foot abscess, left L02.612
--- NOTE | 2025-10-09 16:39 | PM.PROC ---
Procedure Note: Date of procedure: 10/09/25 Pre-procedure diagnosis: Severe peripheral artery disease/ Left foot ulcer Post-procedure diagnosis: other (Severe below the knee peripheral artery disease) Procedure: Patient has patent and flow with patent left common iliac, external iliac, common femoral, SFA, profunda and proximal to mid popliteal artery. Distal popliteal artery is occluded. Reconstitution via strong collaterals of all 3 below the knee vessels and proximal to mid area. Foot has good flow with three-vessel. Attempt was made to cross occluded below the knee vessels however wire could not cross. Medical therapy for Peripheral artery disease given good collateral flow. Performing Provider: Nitish Burch Estimated blood loss (mL): 10 Complications: None Condition: stable Disposition: floor Coding Level of Care Code Acute Code for [facility] Fwd
--- NOTE | 2025-10-09 17:51 | P.PN_ITS ---
Subjective 2 Subjective: Patient seen at bedside. Status post angiogram. Case discussed with cardiology Vitals/I&O/Wt Last Vital Signs Temp 98.1 F 10/09/25 14:31 Pulse 81 10/09/25 16:47 Resp 19 H 10/09/25 16:47 BP 139/85 10/09/25 16:47 Pulse Ox 95 10/09/25 15:09 O2 Del Method Room Air 10/09/25 16:47 10/09/25 10/09/25 10/09/25 06:59 14:59 22:59 Intake Total 350 / 1710 50 / 50 Balance 350 / 1710 50 / 50 Weight last 48 hrs Weight 320 lb Weight 319 lb 4 oz Weight 319 lb 4 oz Weight 320 lb Physical Exam 2 Narrative: BELOW IS A FOCUSED LOWER EXTREMITY EXAM GENERAL: A&O x 3 VASCULAR: DP/PT pulses diminished, monophasic on hand-held Doppler DERMATOLOGICAL: Full-thickness ulceration to distal second digit measuring 0.4 x 0.4 x 0.4 cm positive probe to bone surrounding erythema. Medial hallux amputation site shows full-thickness ulceration measuring 0.2 x 0.2 x 0.3 cm MUSCULOSKELETAL: Tenderness with palpation of left foot second digit NEUROLOGICAL: Neurological sensation to the affected foot and ankle is present through L4-S1 dermatomes with no hyper/hypoesthesias, negative Tinel or Valleix's sign IMAGING: Three-view x-rays of left foot taken in the emergency department independently interpreted by me. These show erosive changes of distal phalanx of second digit consistent with osteomyelitis. CT angiogram also independently interpreted by me. This shows severe PAD to left lower extremity. Data 10/09/25 05:21 10/09/25 05:21 Micro: Microbiology 10/07/25 16:11 Blood Culture - Preliminary Blood NEGATIVE TO DATE 10/07/25 16:09 Blood Culture - Preliminary Blood NEGATIVE TO DATE A&P Assessment and plan 1. Osteomyelitis: 2. Type 2 diabetes mellitus with other specified complication, with long-term current use of insulin: 3. Infection of toe: 4. Peripheral arterial disease: Plan: - Multiple wounds left foot in the presence of PAD -Labs and vitals reviewed - Elevated ESR and CRP -Cultures pending -Abx per ID. Appreciate ID recommendations -Diet: N.p.o. at midnight for procedure 10/10/2025 - Case discussed with cardiology. Reconstituted vascular flow to foot sufficient for amputation. We will plan for left foot second to partial amputation as well as incision and drainage left foot with removal of nonviable tissue and bone at site of first metatarsal. This was discussed with patient in detail at bedside. Patient verbalized understanding. Intraoperative findings will determine antibiotic therapy oral versus IV -Pain Mgmt: Per primary team -Weight bearing: For transfers only -Dressings: Dry sterile dressing -Continue current Abx therapy until ID and Sensitivity results -Trend labs -Discharge plan: To be determined -Podiatry will continue to round on patient daily and provide recommendations PDMP PDMP Reviewed: Not Reviewed Attestations 2 Medical Necessity Statement*: See hospitalist note Coding Level of Care Code Acute Code for [facility] Fwd Diagnoses Osteomyelitis M86.9 Type 2 diabetes mellitus with other specified complication, with long-term current use of insulin E11.69; Z79.4 Diabetes mellitus complication status: with other specified complication 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
[2025-10-09 18:04] LABS: Glucose Urine UA 1+ (Normal); Nitrate Urine Negative (Negative)
[2025-10-09 18:07] LABS: Add Urine Microscopic? YES; Universal Test for UA Present (0)
[2025-10-09 18:11] LABS: PCP Screen Urine Negative (Negative)
[2025-10-09 18:12] LABS: Specific Gravity, Urine 1.064 (1.005-1.030)
[2025-10-09] MEDS: insulin aspart 70/30 100 units/1 mL 27 UNIT SUBCUT (18:27)
[2025-10-09] MEDS: cefTRIAXone 2,000 mg SDV 2000 MG IVP (18:27)
[2025-10-09] MEDS: MELATONIN 3 MG TABLET 6 MG PO (20:44)
[2025-10-10] VITALS (10 sets, daily range): BP systolic 94–137; BP diastolic 54–79; PULSE 67–82; RESP 14–18; TEMP 36.5–36.9; O2SAT 92–97
[2025-10-10 05:30] LABS: Hematocrit 42.5 % (37-53); Hemoglobin 14.00 g/dL (11.27-16.99); Mean Corpuscular HGB Conc 32.9 g/dL (30-55); Mean Corpuscular Hemoglobin 28.5 pg (27-33); Mean Corpuscular Volume 86.4 fl (82-101); Nucleated Red Blood Cells % 0 %; Platelet Count 421 10^3/cmm (157-399); Red Blood Count 4.92 10^6/uL (3.85-5.65); White Blood Count 9.52 10^3/uL (3.29-11.43)
[2025-10-10 05:50] LABS: Alanine Aminotransferase 23 U/L (0-41); Albumin Level 3.7 g/dL (3.5-5.2); Alkaline Phosphatase 87 U/L (40-130); Anion Gap 15.1 (5-19); Aspartate Amino Transferase 18 U/L (0-40); Blood Urea Nitrogen 10 mg/dL (6-20); Calcium 8.6 mg/dL (8.5-10.5); Carbon Dioxide 24 mmol/L (22-29); Chloride 105 mmol/L (98-107); Globulin 2.6 g/dL (1.3-4.6); Glucose 97 mg/dL (65-115); Magnesium 2.0 mg/dL (1.7-2.3); Osmolality Calculated 289 mOsm/kg (285-295); Potassium 4.1 mmol/L (3.5-5.1); Sodium 140 mmol/L (136-145); Total Protein 6.3 g/dL (6.6-8.7)
--- NOTE | 2025-10-10 06:25 | P.ANESASSM_ITS ---
Pre-Anesthetic Assessment Height/Weight: Height 6 ft 7 in Weight 327 lb 6.183 oz Temp Pulse Resp BP Pulse Ox O2 Del Method 97.7 F 73 18 134/67 95 Room Air 10/10/25 06:23 10/10/25 06:23 10/10/25 06:23 10/10/25 06:23 10/10/25 06:23 10/10/25 06:23 Preop Diagnosis: Critical limb ischemia/ Non-healing wound/ Severe Peripheral artery disease Operation Date: 10/09/25 12:00 Proposed Procedures p Peripheral Diagnostic(Not Applicable) - Nitish Burch M.D Operation Date: 10/10/25 07:00 Proposed Procedures p Ray Resection Partial Ray Resection(Left) - Emanuel Pérez DPM s Incision And Drainage(Left) - Emanuel Pérez DPM Was Beta Allegra taken within 24 hours: N/A Was Clonidine taken within 24 hours: N/A Social Tobacco and No alcohol Exam alert, oriented x 3, clear to auscultation bilaterally and regular rate & rhythm Airway Submandibular: within normal limits Cervical ROM: within normal limits Mallampati: Class III Dentition: full Anesthetic Plan ASA status: 3 Anesthesia: MAC Other: No prior issues with anesthesia, patient well-known to our service NPO since yesterday evening History of PAD, on chronic Plavix Insulin-dependent DM, preop BS 140 Current smoker On chronic Plavix for lower extremity stent Plan for MAC anesthesia with local via surgeon Medications/Allergies Home Medications ?Medication ?Instructions ?Recorded ?Confirmed ?Last Taken ?Type atorvastatin 80 mg tablet 80 mg PO DAILY 03/20/2409/2310/06/25 History clopidogrel 75 mg tablet 75 mg PO DAILY 03/20/2409/2310/07/25 History CAM boot #1 ea 12/31/24 10/08/25 Unkn own Rx aspirin 81 mg tablet,delayed 81 mg PO DAILY 08/08/25 1 12/09/24 10/07/25 History release insulin human U-100 NPH-regulr See Rx Instructions .Ro jasmin .COMPLEX 08/08/25 10/08/25 10/07/25 History 70-30 mix 100 unit/mL subcutaneous susp (Novolin 70/30 U-100 Insulin) hydrocodone 5 mg-acetaminophen 325 1 tab PO Q6H PRN pa in #20 tabs 08/12/25 10/08/25 Unknown Rx mg tablet Allergies Allergy/AdvReac Type Severity Reaction Status Date / Time No Known Allergies Allergy Verified 09/30/25 12:38 Current Medications Generic Name Dose Route Start Last Admin Trade Name Akira PRN Reason Stop Dose Admin Aspirin 81 mg 10/09/25 05:00 10/10/25 05:19 Aspirin 81 Mg Ec Tablet PO Not Given On Hold: 10/10/25 06:15 DAILY JUAN Comment: Order held by Process Transfer Atorvastatin Calcium 80 mg 10/09/25 05:00 10/10/25 05:19 Atorvastatin 40 Mg Tablet PO Not Given On Hold: 10/10/25 06:15 DAILY JUAN Comment: Order held by Process Transfer Ceftriaxone Sodium 2,000 mg 10/09/25 18:00 10/09/25 18:27 Ceftriaxone 2,000 Mg Sdv IVP 2,000 mg On Hold: 10/10/25 06:15 Q24H JUAN Administration Comment: Order held by Process Protocol Transfer Clopidogrel Bisulfate 75 mg 10/09/25 05:00 10/10/25 05:19 Clopidogrel 75 Mg Tablet PO Not Given On Hold: 10/10/25 06:15 DAILY JUAN Comment: Order held by Process Transfer Enoxaparin Sodium 40 mg 10/07/25 17:45 10/09/25 17:26 Enoxaparin 40 Mg/0.4 Ml Syringe SUBCUT 40 mg On Hold: 10/10/25 06:15 Q24H JUAN Administration Comment: Order held by Process Transfer Insulin Aspart 42 unit 10/09/25 08:30 10/09/25 08:28 Insulin Aspart 70/30 100 Units/1 Ml SUBCUT Not Given On Hold: 10/10/25 06:15 [facility] Comment: Order held by Process Transfer Insulin Aspart 27 unit 10/09/25 18:00 10/09/25 18:27 Insulin Aspart 70/30 100 Units/1 Ml SUBCUT 27 unit On Hold: 10/10/25 06:15 1800 JUAN Administration Comment: Order held by Process Transfer Insulin Human Lispro 0 unit 10/08/25 18:00 10/09/25 21:15 Insulin Lispro 100 Unit/1 Ml SUBCUT Not Given On Hold: 10/10/25 06:15 WM&BEDTIME JUAN Comment: Order held by Process Protocol Transfer Melatonin 6 mg 10/08/25 21:00 10/09/25 20:44 Melatonin 3 Mg Tablet PO 6 mg On Hold: 10/10/25 06:15 BEDTIME JUAN Administration Comment: Order held by Process Transfer Metronidazole 500 mg 10/09/25 17:00 10/10/25 05:19 Metronidazole 500 Mg Tablet PO Not Given On Hold: 10/10/25 06:15 BID JUAN Comment: Order held by Process Transfer Nicotine 1 patch 10/08/25 05:00 10/10/25 05:19 Nicotine 21 Mg Patch TRANSDERMA Not Given On Hold: 10/10/25 06:15 DAILY JUAN Comment: Order held by Process Transfer Pantoprazole Sodium 40 mg 10/08/25 05:00 10/10/25 05:[address] 40 Mg Tablet PO Not Given On Hold: 10/10/25 06:15 DAILY JUAN Comment: Order held by Process Transfer Temazepam 15 mg 10/08/25 18:18 10/09/25 20:44 Temazepam 15 Mg Capsule PO 15 mg On Hold: 10/10/25 06:15 BEDTIME PRN Administration Comment: Order held by Process INSOMNIA Transfer PFS Anesthesia Medical History Smoking Family History Mother CAD (coronary artery disease) Father CAD (coronary artery disease) Stroke Social History Smoking and tobacco/nicotine status: current every day tobacco/nicotine user cigarettes Packs smoked per day: 2 Years cigarettes smoked: 25 Alcohol intake: former Year of sobriety/quit date alcohol: 2013 Substance/Drug Use: never Marital status: Single Data Anesthesia 10/10/25 04:39 10/10/25 04:39 Short CBC 10/08/25 10/09/25 10/10/25 Range/Units 06:48 05:21 04:39 WBC 10.02 9.30 9.52 (3.29-11.43) 10^3/uL Hgb 13.30 13.80 14.00 (11.27-16.99) g/dL Hct 41.0 42.7 42.5 (37-53) % MCV 86.7 89.3 86.4 (82-101) fl Plt Count 420 H 379 421 H (157-399) 10^3/cmm Neut % (Auto) 63.8 53.3 57.5 % Neut # (Auto) 6.39 4.95 5.47 (1.8-7.7) 10^3/uL BMP 10/08/25 10/09/25 10/10/25 06:48 05:21 04:39 Sodium 140 138 140 Potassium 3.8 4.0 4.1 Chloride 106 103 105 Carbon Dioxide 25 22 24 BUN 11 10 10 Creatinine 0.5 L 0.6 L 0.6 L Glucose 150 H 179 H 97 Calcium 8.3 L 8.8 8.6 Liver Function 10/08/25 10/09/25 10/10/25 Range/Units 06:48 05:21 04:39 Total Bilirubin 0.7 0.5 0.4 (0.15-1.2) mg/dL AST 17 18 18 (0-40) U/L ALT 20 21 23 (0-41) U/L Alkaline Phosphatase 84 84 87 (40-130) U/L Albumin 3.7 3.6 3.7 (3.5-5.2) g/dL Urine 10/09/25 Range/Units 17:51 Urine Color Yellow (Yellow) Urine Appearance Clear (CLEAR) Urine pH 5.5 (5-7) Ur Specific [place] 1.064 H (1.005-1.030) Urine Protein Trace A (Negative) Urine Glucose (UA) 1+ H (Normal) Urine Ketones Negative (Negative) Urine Nitrate Negative (Negative) Urine Bilirubin Negative (Negative) Ur Leukocyte Esterase Negative (Negative) Urine RBC 0-2 (0-2) /hpf Urine WBC 0-5 (0-5) /hpf
--- NOTE | 2025-10-10 06:55 | P.HPUD_ITS ---
Surgery/Procedure H&P Update DATE OF PROCEDURE: October 10, 2025 DATE H&P PERFORMED: 10/08/25 H&P UPDATE INFORMATION: I have reviewed H&P completed within last 30 days, I have examined patient prior to procedure, No changes to prior documentation, H&P is in [facility] EMR on date indicated and Risks and benefits of the procedure reviewed PREOP DIAGNOSIS: Critical limb ischemia/ Non-healing wound/ Severe Peripheral artery disease PLANNED PROCEDURE: Operation Date: 10/09/25 12:00 Proposed Procedures p Peripheral Diagnostic(Not Applicable) - Nitish Burch M.D Operation Date: 10/10/25 07:00 Proposed Procedures p Ray Resection Partial Ray Resection(Left) - Emanuel Pérez DPM s Incision And Drainage(Left) - Emanuel Pérez DPM
[2025-10-10] MEDS: BUPivacaine 0.5% INJ 30 mL INJECTION (07:11)
--- NOTE | 2025-10-10 07:23 | PM.PN ---
Vitals/I&O/Wt Last Vital Signs Temp 97.7 F 10/10/25 06:23 Pulse 73 10/10/25 06:23 Resp 18 10/10/25 06:23 BP 134/67 10/10/25 06:23 Pulse Ox 95 10/10/25 06:23 O2 Del Method Room Air 10/10/25 06:23 10/09/25 10/10/25 10/10/25 22:59 06:59 14:59 Intake Total 560 / 610 1000 / 1610 Balance 560 / 610 1000 / 1610 Weight last 48 hrs Weight 148.5 kg Weight 145.15 kg Data 10/10/25 04:39 10/10/25 04:39 A&P PDMP PDMP Reviewed: Not Reviewed Coding Level of Care Code Acute Code for Chg James
--- NOTE | 2025-10-10 07:58 | W.PM.BPON ---
Date of procedure: 10-10-25 Surgeon name: Dr. Emanuel Pérez DPM [employer] Delivery(s) name(s): Reyes Procedure(s) performed: 1. Partial amputation left foot second toe 2. Incision bone cortex left first metatarsal Description of findings: Discoloration of first metatarsal concerning for osteomyelitis. Distal first metatarsal sent to pathology. Remaining bone appeared healthy and viable and free from infection Estimated blood loss: 5 cc Tourniquet time: No tourniquet used Specimen(s) removed: Left foot second toe, left first metatarsal and cultures of abscess first metatarsal Post-operative diagnosis: Osteomyelitis/abscess
--- NOTE | 2025-10-10 08:24 | ANE.PACU2 ---
Inpatient post-anesthesia follow up: Airway intact: Yes Vital signs: Temperature 98.0 F Pulse Rate 70 Respiratory Rate 16 Blood Pressure [Ri ght Arm] 137/73 Blood Pressure 126/79 Pulse Oximetry 96 Oxygen Delivery Me thod Room Air Oxygen Flow Rate Fraction of Inspir ed Oxygen Hydration adequate: Yes Nausea and vomiting: No Pain level: 1 Mental status: Baseline
--- NOTE | 2025-10-10 09:16 | P.DS_ITS ---
Discharge Providers Date of Admission: 10/07/25 18:08 Date of Discharge: October 10, 2025 Attending Provider at Admission: Miguel Skinner Attending Provider at Discharge: Marsha Trejo NP Diagnoses at Discharge Discharge Diagnosis 1. Osteomyelitis: 2. Type 2 diabetes mellitus with other specified complication, with long-term current use of insulin: 3. Infection of toe: 4. Peripheral arterial disease: Reason for Visit Reason for Visit: Nguyen Gaona foot wound, pain, Brief History: Admission: Eduardo Barlow is a 45 year old male w/ pmhx PVD, DM 2, HLD, current smoker, and s/p left hallux amputation presents today ED today via POV from Dr. Pérez's office with concerns of Left 2nd toe infection with suspected osteomyelitis. Patient states that on 09/30 he had an office visit with Dr. Pérez. During that encounter he peeled the callus from the tip of his left toe, creating a new small wound. Patient states that on Tuesday he started noticing that his left toe began to looking funny and made an appointment with Dr. Nguyễn for today. Patient reports associated signs/symptoms of low-grade fever, warmth up to left knee, pain, swelling, and funky smell. Patient to be admitted to hospitalist services with podiatry consultation services for further medical management and care. While in ED a CBC, CMP, ESR, CRP, lactic acid was collected, reviewed and results as follows: WBC 12.02, Neut 7.93, Plt 467- otherwise unremarkable. CMP unremarkable. ESR 29, CRP 10.2, lactic acid 0.7. Blood cultures obtained, pending. Wound culture and Gram stain obtained and pending. While in ED patient received following medications: Vancomycin 2000 mg IV, meropenem 500 mg IVP, hydralazine 10 mg IVP. Hospital Course Hospital Course Left 2nd Toe Infection Osteomyelitis PAD ? WBC 12.02--<10.02--< ? ESR 29, CRP 10.2, lactic acid 0.7 ? Hx of right lower extremity PAD stenting placement in [facility] 2 years ago ? 10/07: Left Foot XR: Bones/joints: There are post-surgical changes related to 1st ray amputation. No acute fracture or dislocation. There are subtle cortical changes involving the distal 2nd phalanx which can relate to an infectious/inflammatory etiology such as osteomyelitis. Soft tissues: Soft tis rob swelling of the 2nd digit. ? 10/07: CTA runoff: Three-vessel runoff to the level of the ankle in the right lower extremity. Moderate/severe peripheral vascular disease as above, predominantly involving the vasculature below the level of the knee. 2. Vasculature: Severe proximal multifocal atherosclerosis of the left posterior tibial artery. Limited evaluation for patency given venous phase of contrast. This may represent severe multifocal disease versus occlusion. The plantar artery is not well characterized on this exam. 3. Severe multifocal atherosclerotic changes of the left anterior tibial artery and peroneal artery with two-vessel runoff to the level of the ankle. 4. Soft tissue ulcer at the distal margin of the left 1st digit amputation with underlying fluid collection, indeterminate for abscess. Correlate with physical exam. Given subtle underlying 1st metatarsal head subcortical osteopenia (without substantial osseous erosion), early osteomyelitis can not be completely excluded. ? Greatly appreciate podiatry consultation and management with ? Blood culture x2 NGTD. MRSA negative ? Greatly appreciate cardiology/vascular surgical consultation management with ? S/p LLE angiogram - no stenting ? Wound culture and Gram stain obtained and pending. ? IV abx Zosyn 3.375gm IV q8hr, Linezolid 600mg IV q12hr transition to oral augmentin 875 BID x 10 days at discharge - S/p Partial amputation left foot second toe ? Continue Plavix 75 mg, and aspirin 81 mg PO ? Greatly appreciate continued IV antibiotic management and consultation with HTN ? No known prior history ? Received hydralazine 10 mg IVP in ED ? Blood Pressure stable ? PRN Hydralazine - Stable at discharge DM2 ? A1c 8.7 ? Blood glucose monitoring, ACHS ? Moderate regimen sliding scale ? Hypoglycemic protocol ? Cardiac carb consistent diet HLD ? Lipid panel with triglycerides 48, cholesterol 106, LDL 58, HDL 38 ? Continue home medication atorvastatin 80 mg PO dly Nicotine dependence ? Smoking cessation advised ? Smokes 2 packs cigarettes per day ? Nicotine patch 21 mg dly Insomnia ? Melatonin 6mg nightly ? PRN Temazepam 15mg HS Discharge: Discharge is in stable condition status post partial amputation left foot second toe with stitching department supervisor Dr. Pérez. Discharge recommendations and weightbearing status per podiatry. Dr. Pérez discussed discharge antibiotics with infectious disease Dr. Anderson who recommends Augmentin 875 twice daily x 10 days and he will follow up with podiatry in 1 week. Patient discharges with postop shoe in place. Patient is also discharging with nicotine patch with strong recommendations that he not smoke at all especially in the healing phase. Patient is advised not to remove surgical dressing until he follows up in the clinic with Dr. Shepard. Patient is advised to resume home medications as previously prescribed, follow-up with primary care provider in 1 to 2 days. All questions and concerns addressed with the patient prior to discharge today. Physical Exam Narrative: General: A&Ox4, no apparent distress. Cardio: NSR, normal S1-S2 w/o any murmurs, rubs, or gallops and JVD normal Respiratory: Clear breathing on auscultation GI: Abd soft, non-tender, non-distended, normo-active bowel sounds present Neuro: Moves all extremities, no sensory deficits, Normal speech Behavior: Appropriate and cooperative Extremities: Left foot covered with surgical dressing, did not visualize foot postoperatively, dressing is clean dry and intact. Improving erhtyema on left rios. No clubbing, cyanosis or edema, Full ROM Discharge Data Studies Completed and Pending Completed Studies During Hospitalization Category Date Time Status CTA runoff [CT angio abd aorta runof [id number]] Stat Cat Scan 10/07/25 16:47 Completed XR foot LT min 3V* [id number] Stat Exams 10/07/25 16:27 Completed Pending at discharge Category Date Time Status WORLD [employer] TE[employer]ER request for service Routine Exams 10/09/25 07:06 Taken Anaerobic Culture Routine Lab 10/09/25 07:43 Received Blood Culture Stat Lab 10/07/25 16:09 Results Wound Culture and Gram Stain Routine Lab 10/10/25 07:42 Received Pathology: Surgical [PTH] Routine Pth 10/10/25 07:59 Received Radiology Impressions Foot X-Ray 10/07/25 16:27 IMPRESSION: As above. Aorta w/Runoff CTA 10/07/25 16:47 IMPRESSION: 1. Three-vessel runoff to the level of the ankle in the right lower extremity. Moderate/severe peripheral vascular disease as above, predominantly involving the vasculature below the level of the knee. 2. Vasculature: Severe proximal multifocal atherosclerosis of the left posterior tibial artery. Limited evaluation for patency given venous phase of contrast. This may represent severe multifocal disease versus occlusion. The plantar artery is not well characterized on this exam. 3. Severe multifocal atherosclerotic changes of the left anterior tibial artery and peroneal artery with two-vessel runoff to the level of the ankle. 4. Soft tissue ulcer at the distal margin of the left 1st digit amputation with underlying fluid collection, indeterminate for abscess. Correlate with physical exam. Given subtle underlying 1st metatarsal head subcortical osteopenia (without substantial osseous erosion), early osteomyelitis can not be completely excluded. 5. Prostatomegaly. Correlate with PSA. 6. 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 Findings are stable with comparison to the prior examination. 7. No acute abdominopelvic process. Laboratory Results WBC 9.52 10^3/uL (3.29-11.43) 10/10/25 04:39 RBC 4.92 10^6/uL (3.85-5.65) 10/10/25 04:39 Hgb 14.00 g/dL (11.27-16.99) 10/10/25 04:39 Hct 42.5 % (37-53) 10/10/25 04:39 MCV 86.4 fl (82-101) 10/10/25 04:39 MCH 28.5 pg (27-33) 10/10/25 04:39 MCHC 32.9 g/dL (30-55) 10/10/25 04:39 RDW 13.5 % (12.1-15.1) 10/10/25 04:39 Plt Count 421 10^3/cmm (157-399) H 10/10/25 04:39 MPV 9.1 fL (7.4-10.4) 10/10/25 04:39 Neut % (Auto) 57.5 % 10/10/25 04:39 Lymph % (Auto) 29.0 % 10/10/25 04:39 [place] % (Auto) 9.7 % 10/10/25 04:39 Eos % (Auto) 3.0 % 10/10/25 04:39 Baso % (Auto) 0.4 % 10/10/25 04:39 Neut # (Auto) 5.47 10^3/uL (1.8-7.7) 10/10/25 04:39 Lymph # (Auto) 2.8 10^3/uL (0.8-4.8) 10/10/25 04:39 [place] # (Auto) 0.9 10^3/uL (0.2-0.9) 10/10/25 04:39 Eos # (Auto) 0.3 10^3/uL (0.0-0.8) 10/10/25 04:39 Baso # (Auto) 0.0 10^3/uL (0.0-0.1) 10/10/25 04:39 Nucleated RBC % (auto) 0 % 10/10/25 04:39 Nucleated RBCs # 0.0 /100WBC 10/10/25 04:39 ESR 29 mm/hr (0-10) H 10/07/25 16:09 Sodium 140 mmol/L (136-145) 10/10/25 04:39 Potassium 4.1 mmol/L (3.5-5.1) 10/10/25 04:39 Chloride 105 mmol/L (98-107) 10/10/25 04:39 Carbon Dioxide 24 mmol/L (22-29) 10/10/25 04:39 Anion Gap 15.1 (5-19) 10/10/25 04:39 BUN 10 mg/dL (6-20) 10/10/25 04:39 Creatinine 0.6 mg/dL (0.7-1.2) L 10/10/25 04:39 GFR Calculation 147.0 mL/min (90-130) H 10/10/25 04:39 Glucose 97 mg/dL (65-115) 10/10/25 04:39 POC Glucose 140 mg/dL (70-110) H 10/10/25 06:06 Estimat Average Glucose 203 10/07/25 16:09 Hemoglobin A1c 8.7 % (4.0-6.0) H 10/07/25 16:09 Calculated Osmolality 289 mOsm/kg (285-295) 10/10/25 04:39 Lactic Acid 0.7 mmol/L (0.5-2.2) 10/07/25 16:09 Calcium 8.6 mg/dL (8.5-10.5) 10/10/25 04:39 Magnesium 2.0 mg/dL (1.7-2.3) 10/10/25 04:39 Total Bilirubin 0.4 mg/dL (0.15-1.2) 10/10/25 04:39 AST 18 U/L (0-40) 10/10/25 04:39 ALT 23 U/L (0-41) 10/10/25 04:39 Alkaline Phosphatase 87 U/L (40-130) 10/10/25 04:39 C-Reactive Protein 10.2 mg/L (0.0-4.9) H 10/07/25 16:09 Total Protein 6.3 g/dL (6.6-8.7) L 10/10/25 04:39 Albumin 3.7 g/dL (3.5-5.2) 10/10/25 04:39 Globulin 2.6 g/dL (1.3-4.6) 10/10/25 04:39 Triglycerides 48 mg/dL (0-150) 10/07/25 16:59 Cholesterol 106 mg/dL (0-200) 10/07/25 16:59 LDL Cholesterol, Calc 58 mg/dL (50-129) 10/07/25 16:59 HDL Cholesterol 38 mg/dL (60-100) L 10/07/25 16:59 LDL/HDL Ratio 1.53 RATIO (0.00-3.22) 10/07/25 16:59 Cholesterol/HDL Ratio 2.79 mg/dL (1.0-5.00) 10/07/25 16:59 Urine Color Yellow (Yellow) 10/09/25 17:51 Urine Appearance Clear (CLEAR) 10/09/25 17:51 Urine pH 5.5 (5-7) 10/09/25 17:51 Ur Specific [place] 1.064 (1.005-1.030) H 10/09/25 17:51 Urine Protein Trace (Negative) A 10/09/25 17:51 Urine Glucose (UA) 1+ (Normal) H 10/09/25 17:51 Urine Ketones Negative (Negative) 10/09/25 17:51 Urine Blood Negative (Negative) 10/09/25 17:51 Urine Nitrate Negative (Negative) 10/09/25 17:51 Urine Bilirubin Negative (Negative) 10/09/25 17:51 Urine Urobilinogen 1.0 mg/dL (Negative) 10/09/25 17:51 Ur Leukocyte Esterase Negative (Negative) 10/09/25 17:51 Urine RBC 0-2 /hpf (0-2) 10/09/25 17:51 Urine WBC 0-5 /hpf (0-5) 10/09/25 17:51 Ur Squamous Epith Cells 0-5 /hpf (0-5) 10/09/25 17:51 Amorphous Sediment Not Reportable 10/09/25 17:51 Urine Bacteria None seen /hpf (NONE) 10/09/25 17:51 Hyaline Casts 0.81 /lpf 10/09/25 17:51 Urine Sperm 1+ /hpf 10/09/25 17:51 Nasal MRSA (PCR) Not detected (Negative) 10/07/25 21:15 Urine Opiates Screen Negative ng/mL (Negative) 10/09/25 17:51 Ur Barbiturates Screen Negative ng/mL (Negative) 10/09/25 17:51 Ur Phencyclidine Scrn Negative ng/mL (Negative) 10/09/25 17:51 Ur Amphetamines Screen Negative ng/mL (Negative) 10/09/25 17:51 U Benzodiazepines Scrn Positive ng/mL (Negative) H 10/09/25 17:51 Urine Cocaine Screen Negative ng/mL (Negative) 10/09/25 17:51 U Marijuana (THC) Screen Negative ng/mL (Negative) 10/09/25 17:51 Vitals Last Vital Signs Temp 97.7 F 10/10/25 08:41 Pulse 82 10/10/25 08:41 Resp 16 10/10/25 08:41 BP 105/63 10/10/25 08:41 Pulse Ox 94 10/10/25 08:41 O2 Del Method Room Air 10/10/25 08:41 Discharge Plan Discharge Patient Disposition: Home Condition: Stable Prescriptions: New nicotine 21 mg/24 hr Patch 24 Hour 1 patch transdermal DAILY 30 Days Qty: 30 0RF amoxicillin-pot clavulanate 875-125 mg tablet 1 tab PO BID 10 Days Qty: 20 0RF hydrocodone-acetaminophen 5-325 mg tablet 1 tab PO Q6H PRN (Reason: pain) Qty: 15 0RF Continued (DME) CAM boot See Rx Instructions .Route .MEDSUPPLY Qty: 1 0RF Rx Instructions: As directed atorvastatin 80 mg tablet 80 mg PO DAILY clopidogrel 75 mg tablet 75 mg PO DAILY Novolin 70/30 U-100 Insulin 100 unit/mL (70-30) suspension See Rx Instructions .ROUTE .COMPLEX Rx Instructions: Inject 38 units in the morning and 19 units in the evening. aspirin 81 mg Tablet,Delayed Release (Dr/Ec) 81 mg PO DAILY Discontinued hydrocodone-acetaminophen 5-325 mg tablet 1 tab PO Q6H PRN (Reason: pain) Qty: 20 0RF Discharge Order = DC NOW: Discharge Order (Routine); Ordered 10/10/25 Ordered By: Marsha Trejo Referrals: PCP [Other] - 1-3 days Emanuel Pérez DPM [Physician, Podiatry] - 10/15/25 2:00 pm Discharge Diet: Diabetic Discharge Activity: Limit activity as instructed Patient Instructions: Acute Wound Care (DC), Peripheral Vascular Angioplasty ( DC), Incision and Drainage (DC), Opioid Safety, Post Anesthesia Care, Post Angiogram Home Care Instructions, Patient Portal & [facility] Instructions Activity Restrictions/Additional Instructions: Must wear postop shoe left foot, off loading, do not change dressing until follow-up with stitching department supervisor Dr. Pérez. 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
--- NOTE | 2025-10-10 12:07 | PM.MISC ---
Miscellaneous Note Purpose of Documentation: Received message from Dr. Pérez this am that patient will be discharging AMA this morning. HE is being discharged on Augmentin 875mg BID x 10 days which is appropriate based on most recent cx. Intraop metatarsal head showed some discoloration, which was reseceted and sent to path. Margins appeared clean on gross inspection.
--- NOTE | 2025-10-10 12:36 | P.PN_ITS ---
<Statement entered by Nitish Burch M.D - 10/17/25 10:52> Patient was cared for in conjunction with an advanced practice practitioner.? I reviewed the chart and all pertinent data including imaging, telemetry, and laboratory results.? I discussed the patient in detail with the advanced practice practitioner.? Please see? their documentation for progress note, testing results and agreed upon plan of care for the patient. Subjective 2 Subjective: Patient seen today. Groin site looks good. No interventions required. Vitals/I&O/Wt Last Vital Signs Temp 98.0 F 10/10/25 11:16 Pulse 70 10/10/25 11:16 Resp 16 10/10/25 11:16 BP 126/79 10/10/25 11:16 Pulse Ox 96 10/10/25 11:16 O2 Del Method Room Air 10/10/25 11:16 10/09/25 10/10/25 10/10/25 22:59 06:59 14:59 Intake Total 560 / 610 1000 / 1610 1100.0 / 1100.0 Output Total 5 / 5 Balance 560 / 610 1000 / 1610 1095.0 / 1095.0 Weight last 48 hrs Weight 327 lb 6.183 oz Weight 320 lb Physical Exam 2 Narrative: General: No apparent distress HENMT: normoceophalic Neck: No carotid bruit bilaterally Respiratory: Normal respiratory effort, clear to auscultation bilaterally throughout all lung muro, no use of accessory muscles Cardio: No JVD, regular rate, regular rhythm, S1 S2 normal, no murmurs, Vascular: peripheral pulses 2+ radial palpated bilaterally Neuro: Alert and oriented x4, no focal motor deficits Psych: Affect normal Skin: Left lower extremity wrapped, right groin puncture site clean dry intact soft nontender no signs of hematoma Data 10/10/25 04:39 10/10/25 04:39 A&P Assessment and plan 1. Peripheral arterial disease: 2. Smokin. Primary hypertension: 4. Hyperlipidemia, unspecified hyperlipidemia type: 5. Type 2 diabetes mellitus with other specified complication, with long-term current use of insulin: 6. 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 Follow-up in the clinic in 1 week for site evaluation otherwise good for discharge from cardiology standpoint. 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
== END 2025-10-10 11:34 | disposition home or self-care (01) | DRG 617 ==
LOC: ER 17:19 → MEDSURG 18:09 → CSU 10-08 14:55 → MEDSURG 10-10 08:18
PROVIDERS: Internal Medicine; Physician Assistant; Podiatrist Foot & Ankle Surgery; Admitting Provider Internal Medicine; Emergency Provider Emergency Medicine; Visit Provider Registered Nurse
PROC: B41DYZZ Fluoroscopy of Aorta and Bilateral Lower Extremity Arteries using Other Contrast (ICD-10-PCS; principal; 2025-10-09 12:00)
PROC: 0Y6Q0Z1 Detachment at Left 1st Toe, High, Open Approach (ICD-10-PCS; CPT 28810; principal; 2025-10-10 07:00)
PROC: 0Y6Q0Z1 Detachment at Left 1st Toe, High, Open Approach (ICD-10-PCS; 2025-10-10 07:00)
DX: E11.69 Type 2 diabetes mellitus with other specified complication (principal); E11.52 Type 2 diabetes mellitus with diabetic peripheral angiopathy with gangrene; M86.172 Other acute osteomyelitis, left ankle and foot; F17.210 Nicotine dependence, cigarettes, uncomplicated; I10 Essential (primary) hypertension; E78.00 Pure hypercholesterolemia, unspecified; G47.00 Insomnia, unspecified; E11.51 Type 2 diabetes mellitus with diabetic peripheral angiopathy without gangrene; I82.432 Acute embolism and thrombosis of left popliteal vein; F10.11 Alcohol abuse, in remission; Z95.820 Peripheral vascular angioplasty status with implants and grafts; Z79.85 Long-term (current) use of injectable non-insulin antidiabetic drugs; Z79.02 Long term (current) use of antithrombotics/antiplatelets; Z79.82 Long term (current) use of aspirin; Z82.3 Family history of stroke; Z82.49 Family history of ischemic heart disease and other diseases of the circulatory system
CPT/HCPCS: 36415; 36416; 73630; 75625; 75635; 75710; 80053; 80061; 80306; 81001; 82962; 83036; 83605; 83735; 85025; 85651; 86140; 87040; 87070; 87075; 87077; 87205; 88305; 88307; 88311; 96365; 96372; 96375; 99152; 99153; 99285; C1760; C1769; C1887; C1894; G0269; J0360; J0696; J1644; J1650; J1815; J2020; J2185; J2250; J2543; J2704; J3010; J3372; J3490; J7030; J9999; Q0163; Q9967